=== PATIENT | female | born 1960 | race Caucasian/White ===

== ENCOUNTER 2020-03-31 07:42 | Outpatient (CLI) | payer OTHER, SELFPAY ==
--- NOTE | ~2020-03-31 | MR_ITS ---
EXAMINATION: MR knee RT wo con DATE: 03/31/2020 08:31 INDICATION: Medial right knee pain TECHNIQUE: Magnetic resonance imaging (MRI) of the right knee was performed without intravenous contr ast. Sequences included coronal PD-weighted FSE, coronal PD-weighted FS FSE, sagittal T2-weighted FS E, sagittal PD-weighted FS FSE and axial PD weighted fat saturated FSE. COMPARISON: None. FINDINGS: Medial compartment: Medial extrusion of the medial meniscus with complex tear of the body and posterior horn. The medial meniscal body is small consistent with either displacement or degeneration of the meniscal tissue. Ex tensive cartilage loss with chondral surface irregularity throughout the medial tibial plateau and we ightbearing medial femoral condyle. In places this appears full/near full-thickness with underlying s ubarticular edema and cystic change along the anterior two thirds of the medial tibial plateau as wel l as several smaller foci of subarticular edema along the weightbearing medial femoral condyle. Small marginal osteophytes are present. Lateral compartment: Lateral meniscus is normal. Small region of partial-thickness chondral fissuring involving greater th an 50% the cartilage thickness but without degenerative subarticular changes at the junction of the l ateral tibial plateau and the shoulder of the intercondylar eminence. Tiny marginal osteophytes are p resent. Patellofemoral compartment: Partial-thickness cartilage loss involving up to 50% the cartilage thickness at the patellar apical r idge and medial side of the lateral patellar facet. Additional deeper chondral fissuring at the troch lear groove. Small marginal osteophytes are present. Ligaments and tendons: Anterior and posterior cruciate ligaments are normal. The fibular collateral ligament complex is norm al. Mild thickening and increased signal along the anterior margin of the proximal medial collateral ligament without surrounding edema consistent with likely mild scarring related to chronic sprain. Th e extensor mechanism is normal. The visualized medial and lateral hamstring tendons as well as the il iotibial band are normal. Fluid: Physiologic amount of fluid in the joint space. No loose osteochondral bodies identified. Osseous/other: Site from the degenerative subarticular edema there is normal marrow signal. No fracture or pathologi c marrow replacing process. IMPRESSION: 1. Complex medial meniscal tear. 2. Tricompartmental osteoarthritis, moderate severity with extensive high-grade chondromalacia in the medial compartment and very mild with regions of moderate grade chondromalacia in the patellofemoral and lateral compartments. Reviewed, dictated and finalized at location A. IMPRESSION: 1. Complex medial meniscal tear. 2. Tricompartmental osteoarthritis, moderate severity with extensive high-grade chondromalacia in the medial compartment and very mild with regions of moderat e grade chondromalacia in the patellofemoral and lateral compartments.
== END 2020-03-31 07:43 | disposition home or self-care (01) ==
PROVIDERS: PCP Family Medicine; Visit Provider Orthopaedic Surgery
DX: G89.29 Other chronic pain (principal); M25.561 Pain in right knee; S83.231A Complex tear of medial meniscus, current injury, right knee, initial encounter; M17.11 Unilateral primary osteoarthritis, right knee; M94.261 Chondromalacia, right knee
CPT/HCPCS: 73721

== ENCOUNTER 2021-11-15 07:45 | Outpatient (CLI) | payer OTHER, SELFPAY ==
[2021-11-15 09:37] LABS: Eosinophils Absolute Auto 0.2 K/mm3 (0-0.3); Eosinophils Percent Auto 3.7 % (0-4.4); Hematocrit 41.8 % (37.0-47.0); Hemoglobin 13.9 g/dL (12.0-15.0); Lymphocytes Absolute Auto 2.21 K/mm3 (0.9-3.2); Lymphocytes Percent Auto 54.2 % (18.3-44.2); Mean Corpuscular HGB Conc 33.3 g/dl (32-36); Mean Corpuscular Hemoglobin 28.5 pg (26-34); Mean Corpuscular Volume 85.8 fl (80-100); Mean Platelet Volume 9.8 fl (7.4-10.4); Monocytes Absolute Auto 0.3 K/mm3 (0.1-0.6); Monocytes Percent Auto 6.4 % (2.6-8.5); Neutrophils Absolute Auto 1.4 K/mm3 (1.3-6.7); Neutrophils Percent Auto 34.7 % (45.5-73.1); Platelet Count Result 249 k/mm3 (150-375); Red Blood Count 4.87 M/mm3 (4.2-5.4); Red Cell Distribution Width 13.9 % (11.5-14.5); White Blood Count 4.1 K/mm3 (4.5-10.0)
[2021-11-15 09:51] LABS: Hemoglobin A1C 5.7 % (<5.7)
[2021-11-15 09:53] LABS: Urine Cotinine NEGATIVE
[2021-11-15 09:54] LABS: Albumin Level 4.7 g/dL (3.5-5.1); Estimated Glomerular Filt Rate > 60; Glucose 93 mg/dL (65-110)
== END 2021-11-15 07:46 | disposition home or self-care (01) ==
PROVIDERS: PCP Family Medicine; Visit Provider Orthopaedic Surgery
DX: Z01.818 Encounter for other preprocedural examination (principal); M17.11 Unilateral primary osteoarthritis, right knee
CPT/HCPCS: 80307; 82040; 82565; 82947; 83036; 85025; 87081

== ENCOUNTER 2021-12-03 00:25 | Day surgery (SDC) | payer OTHER, SELFPAY ==
[2021-11-15 08:00] VITALS: BMI 22.4
--- NOTE | 2021-11-15 08:36 | PC.NURSE ---
Addendum entered by Zoë Mixon RN 11/16/21 10:54: PT AWARE LAST DOSE OF ALL VITAMINS AND SUPPLEMENTS WILL BE 11/29/21 Original Note: Report to the Outpatient Waiting Room, entrance under the green pavilion located off [facility], at time ___0600____ on date _12/03/21 . OR Time: __729 . - You and your visitor will be asked a series of questions to screen for COVID 19 for your protection. - A mask is required within the hospital. ONE VISITOR IS ALLOWED Preoperative COVID Testing Requirements: No COVID Test needed if: (proof is required; if not received patient will have Rapid Test prior to entry) - Patient has received COVID Vaccine at least 14 days prior to procedure date or - Patient has positive COVID test result within last 90 days of surgery date. COVID Test needed if above criteria is not met If not COVID vaccinated a COVID test must be conducted within 72 hours of surgery and patient is asked to isolate self from time of testing until procedure. You will go to the [facility] for your COVID testing. The [facility] site is located at the corner of [address] [facility]. You will only be called if COVID results are positive and your surgeon may reschedule your elective surgery date. Patients may have clear liquids (water, carbonated beverages, clear teas, apple juice) until 3 hours prior to surgery with a maximum of 20 ounces. - No food from midnight until time of surgery - Infants may have breast milk until 4 hours before surgery, infant formula 6 hours prior to surgery. - Children will be allowed to drink immediately following surgery. If applicable, please bring a bottle or sippy cup to assist with drinking. Juice, water, soda, and popsicles are readily available. For infants on formula, please bring formula the day of surgery. Pacifiers are allowed. Take the following medications with a SIP of water the morning of surgery: ___INHALER IF NEEDED Medications to discontinue per physician _ALL VITAMINS AND SUPPPLEMENTS 3 DAYS PRE OP Date to take last dose____11/01/21 Please no make-up, nail frisian, hairspray, perfume, deodorant, or body powder the day of surgery. No jewelry (including any body piercings) or valuables the day of surgery, leave them at home. Please take a shower or bath the night before, or the morning of, surgery with an antibacterial soap. Wear comfortable, loose fitting clothing. Children are encouraged to wear pajamas. - Jewelry must be removed prior to entering the operating room. Rings and piercings that are not removed may be cut off. - The hospital will not accept responsibility for valuables. - Please leave all valuables, including medications, at home the day of surgery. If you are going home after surgery, a licensed tram driver must drive you home. - NO public transportation without another adult. - We recommend that an adult stay with you for 24 hours following discharge. - We also recommend that you do not drive, make important decision, drink alcoholic beverages, or take any drugs that were not prescribed by your health care provider for at least 24 hours after your discharge time. For Pediatric surgeries, we recommend two adults accompany the child home (only one inside the building at this time). One visitor will be allowed to accompany the patient into the hospital. Patients visitor will be instructed to remain with patient at all times or leave the building. We will allow the visitor to come back to the postoperative area when patient is ready. Follow any additional instructions given to you from your surgeon. VERBAL instructions given to ___PATIENT and asked if any additional questions and then verbalized understanding. Patient advised to call surgeon office or pre surgery nurse liaison [phone] if any additional questions.
[2021-11-15 08:51] VITALS: BP 106/71; PULSE 60; RESP 18; TEMP 36.7; O2SAT 98
[2021-12-03] VITALS (16 sets, daily range): BP systolic 104–125; BP diastolic 56–93; PULSE 50–77; RESP 12–21; TEMP 36.3–37.2; O2SAT 97–100
--- NOTE | ~2021-12-03 | XR_ITS ---
EXAMINATION: XR knee RT 2V DATE: 12/03/2021 10:24 INDICATION: Right total knee arthroplasty. Postop. TECHNIQUE: 2 views of right knee were obtained. COMPARISON: Right knee radiographs 09/06/2021 FINDINGS: There is a total right knee arthroplasty with patellar resurfacing in near-anatomic alignme nt. No fracture. There is gas in the knee joint and soft tissues, consistent with recent surgery. The re are skin alden posteromedial to tibial metaphysis. IMPRESSION: 1. Total right knee arthroplasty in near-anatomic alignment. Reviewed, dictated and finalized at location A. ET [employer]EARCH LEAD
[2021-12-03] MEDS: ACETAMINOPHEN 500 MG TABLET 1000 MG PO (06:18)
[2021-12-03] MEDS: LACTATED RINGERS 1,000 ML 30 ML IV CONT ×2 (06:35→10:08)
[2021-12-03] MEDS: TRANEXAMIC ACID 1,000MG/ISO100 1,000 MG/100 ML BAG 200 MG IVPB (07:00)
--- NOTE | 2021-12-03 07:09 | WPDHPUPDATE1 ---
History and Physical Update Update Date/Time: 12/03/21 07:09 History and Physical has been reviewed, including an updated exam of the patient. There are NO changes in the patient's condition. Risks, benefits, and alternatives have been discussed and questions answered. Patient agrees to proceed with procedure.
--- NOTE | 2021-12-03 07:11 | WPDANESEPPF ---
Anes - Initial Pre Proc Eval Procedure: Operation Date: 12/03/21 07:30 Proposed Procedures p Right Total Knee Arthroplasty - Quan Jennings MD Date/Time: 12/03/21 07:11 Surgeon: Quan Jennings MD Pre Op Diagnosis: OA right knee Patient Data Age: 61 Gender: F Height: 1.65 m Weight: 61 kg Last Vital Signs Temp 37.2 C 12/03/21 06:09 Pulse 50 L 12/03/21 06:09 Resp 20 12/03/21 06:09 BP 124/67 12/03/21 06:09 Pulse Ox 97 12/03/21 06:09 Allergies Allergy/AdvReac Type Severity Reaction Status Date / Time clindamycin Allergy Severe HIVES Verified 12/03/21 06:20 doxycycline Allergy Severe HIVES Verified 12/03/21 06:20 Home Medications Medication Instructions Recorded Confirmed Type hydroxyzine HCl 25 mg tablet 25 mg PO HS tablet 02/24/20 12/03/21 History trazodone 50 mg tablet 50 mg PO PRN PRN 01/04/21 11/15/21 History albuterol sulfate 2 puff INHALATION PRN PRN 11/15/21 12/03/21 History ascorbic acid (vitamin C) 500 mg PO BID 11/15/21 12/03/21 History ascorbic acid-collagen [Collagen 1 cap PO DAILY 11/15/21 12/03/21 History Plus Vitamin C] zzzebjr-M5-zrod-copper-gabriela 1 tablet PO BID 11/15/21 12/03/21 History [Citracal-D3 Maximum Plus] psyllium [Metamucil] 1 packet PO DAILY 11/15/21 12/03/21 History escitalopram oxalate 5 mg tablet 5 mg PO DAILY 11/20/21 12/03/21 History rivaroxaban 10 mg tablet 10 mg PO DAILY #14 tablet 11/20/21 12/03/21 Rx Patient hx anesthesia problems: none Family hx anesthesia problems: none Results Review: All pre-operative results and documents have been reviewed as part of the pre-operative evaluation. [facility] Past Medical History Medical History BMI 22.0-22.9, adult Osteoarthritis of right knee Surgical History Surgical History History of arthroscopy of right knee History of repair of right rotator cuff History of vein stripping right leg Family History Family History Mother Heart disease Father Hypertension Heart disease Cancer Sibling Diabetes mellitus Hypertension Social History Social History Smoking packs per day: 0.5 Smoking cigarettes per day: 10.0 Years smoked: 10 Smoking pack-years: 5.00 Smoking status: Former smoker Tobacco type: cigarettes Smoking end date: 09/29/79 Additional smoking assessment comments: DENIES ANY FORM OF TOBACCO USE Alcohol intake: current Drinks per week: 14 Living arrangements: with family Additional living arrangements comments: 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 Informed Consent: The patient's anesthetic plan and its attendant risks and benefits were discussed with the patient/family/POA. Questions were solicited and answers provided to the satisfaction of the patient/family/POA.
--- NOTE | 2021-12-03 07:14 | WPDANESPNB ---
Anes - Peripheral Nerve Block Date/Time: 12/03/21 07:14 I have discussed with the patient/family/POA the placement of a peripheral nerve block for post-operative pain management, including associated risks, benefits, complications, and side effects. Alternative methods of post-operative analgesia were detailed. Questions were solicited and answers provided to the satisfaction of the patient/family/POA. Time-Out: A pre-procedural Time-Out was completed immediately before starting the procedure and confirmed: Patient Identification, Site, Procedure, Patient Position and the Availability of Requisite Equipment. Clinical Indications: Acute post-operative pain management requested by the operative surgeon. Nerve Block Insertion Note Anes-nerve block: adductor canal right Patient position: supine Skin prep: chlorhexidine Needle: 22 gauge, stimulating, insulated echogenic needle. Needle length: 80 mm Technique: ultrasound Technique comment: in plane Injectate: bupivacaine 0.25% with epi 5 mcg/ml (30cc) Observations: tolerated well Complications: none Procedure start time:: 725 Procedure end time:: 730
[2021-12-03] MEDS: ceFAZolin 2 GM/D5W 50 ML 2 GM/50 ML BAG IVPB (07:36)
[2021-12-03] MEDS: GENTAMICIN BONE CEMENT REFOBACIN 1 EACH TOPICAL (08:11)
[2021-12-03] MEDS: ceFAZolin SODIUM 1 GM VIAL IV PUSH (09:12)
--- NOTE | 2021-12-03 10:19 | P.OP_ITS ---
Procedure Note - Detailed Date of Procedure 12/03/21 Pre-op Diagnosis OA right knee Post-op Diagnosis Same Procedure Performed Right total knee replacement Surgeon Quan Jennings MD [employer] [facility] Anesthesia General and Regional Description of Procedure The patient was identified and proper site identified. In the preop holding area the anesthesia team performed a right sub sartorial block after which the patient was taken to the operating room and transferred to the OR table positioning supine taking care to pad the torso and extremities. After general anesthetic induction and intubation a nonsterile tourniquet was placed high on the right thigh. The right lower extremity was prepped and draped in the usual sterile fashion. The extremity was exsanguinated and with the knee flexed tourniquet was inflated to 300 mmHg remaining up for approximately 70 minutes. An anterior midline incision was made and a mid vastus approach was used. Infra and suprapatellar fat pads were excised. Patella was resected leaving 15 mm thickness and prepared for the size 28 round three peg component. Using the intramedullary guide the distal femur was cut in the proper orientation for the size size 65 femoral component. Using the extramedullary guide the tibia was c ut perpendicular to the long axis protecting collateral ligaments and popliteal structures. It was sized to a 71. Flexion and extension gaps were balanced. Trial reduction was undertaken and the weight-bearing line was noted to passed through the center of the joint. The medial tibial plateau cyst was thoroughly curetted and then grafted with some of the bone from the tibial plateau which had been removed. Proximal tibia was drilled and punched in the proper orientation for the real component. Trial components were removed. The bone surfaces were washed with pulsatile lavage and dried. The real components were cemented simultaneously. The knee was held in extension and the patella held clamped until the cement had cured. Excess cement was removed from the joint. After trialing it was determined that the Ten mm insert gave full range of motion from October 30, 2019 degrees of flexion and the patella tracked in the femoral groove with no lift-off. After final lavage the joint the real 10 E poly insert was placed and secured with a locking bar. A Betadine and saline wash was placed into the wound and allowed to sit for approximately 3 minutes and then evacuated. Periarticular tissues were infiltrated with 60 cc of the arthroplasty solution. 1 g of tranexamic acid was left in the wound. The extensor mechanism was repaired with #2 Vicryl suture and 0 looped PDS suture. Subcu was reapproximated with three 0 Monocryl, two 0 Quill and tissue adhesive for the skin. A sterile dressing was applied. she tolerated the procedure well, was awakened and extubated, transferred to the bed and was taken to recovery area in stable condition. There were no known intraoperative complications. Perioperative antibiotics were administered. Estimated Blood Loss 100 Tourniquet Time 70 Drains No Packing No Pathology None sent Complications No immediate complications Condition Stable Disposition PACU
[2021-12-03] MEDS: fentaNYL CITRATE INJ (*CRX) 100 MCG/2 ML VIAL 25 MCG IV PUSH ×8 (10:25→11:12)
[2021-12-03] MEDS: diphenhydrAMINE HCl INJ 50 MG/ML VIAL 25 MG IV PUSH (10:47)
[2021-12-03] MEDS: SODIUM CHLORIDE 0.9% IV 1,000 ML 125 ML IV CONT (12:00)
[2021-12-03] MEDS: oxyCODONE/ACETAMINOPHEN (*CRX) 5-325 MG TABLET 1 TABLET PO ×2 (12:04→17:27)
[2021-12-03] MEDS: KETOROLAC 15 MG/ML VIAL (*BKC) IV PUSH ×2 (12:44→17:28)
[2021-12-03] MEDS: ASCORBIC ACID 500 MG TABLET PO (16:23)
[2021-12-03] MEDS: SENNA/DOCUSATE SODIUM TABLET 2 TAB PO (16:23)
[2021-12-04] MEDS: KETOROLAC 15 MG/ML VIAL (*BKC) IV PUSH ×3 (00:31→12:15)
[2021-12-04] MEDS: oxyCODONE/ACETAMINOPHEN (*CRX) 5-325 MG TABLET 1 TABLET PO ×3 (00:32→12:15)
[2021-12-04 01:35] VITALS: BP 114/63; PULSE 56; RESP 20; TEMP 36.3; O2SAT 99
[2021-12-04 05:10] VITALS: BP 128/62; PULSE 66; RESP 20; TEMP 36.7; O2SAT 99
--- NOTE | 2021-12-04 07:31 | PM.DS ---
DS: Admitting Diagnosis Discharge Date December 04 2021 Admitting Diagnosis Right knee osteoarthritis DS: Discharge Diagnosis Discharge Diagnosis (1) History of total right knee replacement: Code(s): Z96.651 - Presence of right artificial knee joint Status: Acute Assessment and Plan: 61-year-old female postop day 1 after right total knee replacement per Dr. Jennings. Overall doing well and is going to continue with therapy today. Medications and postop instructions discussed in detail with patient today. Plan to follow up in our office 2 weeks for wound check. She was informed to call our office with any further questions or concerns prior to that appointment. DS: Summary Hospital Course Reason for hospitalization: Observation after outpatient procedure Hospital Course: 61-year-old female postop day 1 after right total knee replacement by Dr. Jennings. Unremarkable overnight stay. Surgical incision is clean and dry. She will continue to see therapy today prior to discharge. Discharge instructions reviewed with patient in detail. Status at Discharge Functional status at discharge: uses cane/walker Overall status at discharge: patient is progressing back to baseline Time Spent with Patient Time attestation: Total time spent providing and/or coordinating discharge services: Time spent: Less than 30 minutes Exam Const: General: comfortable and no acute distress Eyes: General: appearance normal, both eyes and all related structures Resp: Effort & Inspection: normal respiratory effort GI: Inspection: non-distended GI Palp: No Tenderness to palpation present (GI) Neuro: Sensory Exam: normal sensation Extrem: Other: Exam of the right knee shows moderate swelling consistent with recent surgical procedure. The surgical dressing is clean and dry. She is able to fully extend the knee to 0? with active assisted range of motion. She is able to dorsiflex and plantar flex the foot without issue. Neurovascular status unremarkable. Calves negative. Psych: Mental Status: mental status grossly normal DS: Data Data Completed and Pending Labs on day of discharge: Labs from last 24 hours 12/03/21 06:41 Blood Type A Negative Antibody Screen Negative Discharge Plan Discharge Patient Disposition: Home, Self-Care Discharge Instructions: 3 times daily for 20 minutes each time, reclining in bed with ice packs over the incision and a pillow underneath the calf of the affected leg, not under the knee. Your wound is glued so it is okay to get into the shower and get the wound wet in two days. Be sure to read through all the information that came from a my office and the hospital. Most of the answers you will need can be found that material. Call the office with any questions that you cannot find answers to, or concerns you may have. After the Xarelto is completed, start taking one coated 325 mg aspirin daily and do this for four more weeks. Please call [facility] at as soon as possible to arrange for/verify your follow-up appointment to be seen in 2 weeks. Also, call the office with any orthopedic/surgical related questions prior to follow-up. Be sure to get up and move around several times daily but do not overdo it. Take the arthritis formula Tylenol 650 mg tablet on an 8 hour schedule. A good 8 hour schedule is: 6:00 a.m., 2:00 p.m., 10:00 p.m. you may take the prescribed pain medication along with the Tylenol; it is not to be taken instead of the Tylenol. I would like for you to take the Tylenol on a schedule for 2-3 weeks. He had been given a prescription for oxycodone. I suggest you take this medication as prescribed for the 1st 2-3 days but then you can take it on a as needed schedule. You have also been given a prescription for Celebrex to be taken twice daily for 1 week. Use the laxative Senekot S twice daily for 2 weeks after discharge while taking the prescription pain medicatio
[2021-12-04] MEDS: PSYLLIUM POWDER PACKET 1 PACKET PO (08:00)
[2021-12-04] MEDS: ESCITALOPRAM OXALATE 5 MG TABLET PO (08:00)
[2021-12-04] MEDS: SENNA/DOCUSATE SODIUM TABLET 2 TAB PO (08:00)
[2021-12-04] MEDS: RIVAROXABAN 10 MG TABLET PO (08:00)
[2021-12-04] MEDS: polyethylene glycoL 3350 17 GM POWD.PACK PO (08:00)
[2021-12-04] MEDS: ASCORBIC ACID 500 MG TABLET PO (08:00)
[2021-12-04 09:52] VITALS: BP 116/62; PULSE 62; RESP 16; TEMP 36.4; O2SAT 100
== END 2021-12-04 13:00 | disposition home or self-care (01) ==
LOC: ANHSURGERY 10:10 → ANH2MED 11:25
PROVIDERS: PCP Family Medicine; Visit Provider Orthopaedic Surgery
PROC: (CPT 27447; principal; 2021-12-03 07:30)
DX: M17.11 Unilateral primary osteoarthritis, right knee (principal); G89.18 Other acute postprocedural pain; Z79.01 Long term (current) use of anticoagulants; Z79.51 Long term (current) use of inhaled steroids; Z87.891 Personal history of nicotine dependence
CPT/HCPCS: 27447; 64447; 36415; 73560; 80307; 82040; 82565; 82947; 83036; 85025; 86850; 86900; 86901; 87081; 97110; 97116; 97161; 97165; 97535; A9270; C1713; C1776; J0171; J0690; J1100; J1170; J1200; J1885; J2250; J2270; J2405; J2704; J2795; J3010; J7030; J7120

== ENCOUNTER 2022-01-29 07:00 | Outpatient (RCR) | payer OTHER, SELFPAY ==
--- NOTE | 2021-12-10 10:23 | PTOPEVAL ---
Thank you for referring Augustina Hoffman to [facility].? The patient is scheduled to be seen for therapy? 2 x/week for 8 weeks. Please review, sign, date and return this plan of care MARTHA. I agree with and certify that the following plan of care is medically necessary. 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 She is taking pain medication. Subjective Information She had knee surgery 12/03/21. 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 She has stiffness with prolonged sitting or sleeping. c/o swelling in the leg and edema above surgery site. She is performing HEP daily. She is having trouble sleeping. Pain Assessment Timing of Pain Assessment Timing of Pain Assessment Assessment Pain Scale Pain Scale Used Numeric (1 - 10) Self Report Pain Assessment Right Knee(s) Reported Pain Level 4 Pain Description Aching,Soreness,Tightness Pain Frequency Acute,Continuous Lowest Pain Intensity 2 Greatest Pain Intensity 10 Pain Aggravating Factors ADL's,Bending,Exercise/ Activity,Palpation,Sitting, Stair Climbing,Walking Pain Behaviors Anxious Pain Score Pain Score 4: Self Report Interventions Used Interventions Used By Clinicians Education,Exercise Pain Relief Interventions Used By Exercise,Ice,Medication Patient Lower Extremity Range of Motion Knee Range of Motion Right Knee Flexion Range of Motion - Active 80 Knee Extension Range of Motion - Active -5 Knee Range of Motion Limitations Edema,Pain,Soft Tissue Restriction Lower Extremity Muscle Strength Testing Hip Strength Right Hip Flexion Strength 3+ Fair + Hip Extension Strength 3 Fair Hip Abduction Strength 3+ Fair + Hip Strength Comments pain with testing Knee Strength Right Knee Flexion Strength 3 Fair Knee Extension Strength 3 Fair Knee Strength Comments pain with testing Posture Posture Standing Position Head/C-Spine Posture Forward Head Weight Distribution Weight Shifted Left,Decreased
--- NOTE | 2022-01-14 12:37 | PTOPEVAL ---
Thank you for referring Augustina Hoffman to [facility]. Augustina has attended 11 therapy visits to address her LE impairments since her knee surgery. She is progressing with knee motion, LE strength and functional mobility. Extensive education to avoid over use of LE with daily task. She is progressing towards her therapy goals. The patient is scheduled to be seen for therapy? 2 x/week for 4 weeks. Please review, sign, date and return this plan of care MARTHA. I agree with and certify that the following plan of care is medically necessary. Referring Physician Date Attending Provider: Quan Jennings MD Diagnosis OA right knee, s/p TKR Onset 12/03/21 Subjective Information She had knee surgery 12/03/21. Query Text:As Reported By Patient/ She reports increased knee Family pain at the end of day. She has increased stiffness with prolonged walking. However she is pulling her horse when she is walking. She reports improved standing task. She reports tenderness on the inside of knee/proximal lower leg region. She was performing 2x/ the exercises, reps and hold time for all her exercises. She is not icing, because it is painful, thus she is not icing. She is concerned with her limited knee motion and cont swelling. Pain Assessment Right Knee(s) Reported Pain Level 1 Pain Score Pain Score 1: Self Report Lower Extremity Range of Motion Right Knee Flexion Range of Motion - Active 120 Knee Extension Range of Motion - Active -10 Lower Extremity Muscle Strength Testing Right Hip Flexion Strength 4+ Good + Hip Extension Strength 3+ Fair + Hip Abduction Strength 3+ Fair + Hip Strength Comments pain with testing glut region Right Knee Flexion Strength 4- Good - Knee Extension Strength 4+ Good + Knee Strength Comments pain with testing hamstring Palpation Assessment Palpation severe tenderness right pes ansurens, scar restriction inf healed incision, decreased patellar mobilization Extremity Circumference Assessment Circumference Assessment Location Right Body Part Knee Site Descriptor ([place]) inf patella Circumference (cm) 35 Noninvolved Side Circumference (cm) 3
--- NOTE | 2022-01-31 07:16 | PCPTNOTE ---
Pt had a f/u with who recommended DC from therapy services and continue with her HEP. Will DC her chart at this time.
--- NOTE | 2022-01-31 07:18 | PCPTNOTE ---
Admitting Provider: Attending Provider: Quan Jennings MD Patient:Augustina Hoffman Date of :1960 Physical Therapy Discharge Note Patient has been for 15 therapy visits from 12/10/21 to 01/29/22 to address impairments related to TKR. As a result of skilled therapy services she demonstrates improved knee motion, LE strength and ability to perform daily task. The goals have been partially met. Thank you for referring this patient to [facility]. Please review, sign, date and return this discharge summary MARTHA. I have been updated about the patient's current status and I agree with discharge from the above service at this time. Referring Physician Date
== END 2022-01-31 09:27 | disposition home or self-care (01) ==
LOC: ANHPT 07:00
PROVIDERS: PCP Family Medicine; Visit Provider Orthopaedic Surgery
DX: Z47.1 Aftercare following joint replacement surgery (principal); Z96.651 Presence of right artificial knee joint
CPT/HCPCS: 97014; 97110; 97112; 97140; 97162; 97530; G0283

== ENCOUNTER 2023-08-05 00:40 | Day surgery (SDC) | payer MEDICARE, SELFPAY ==
--- NOTE | 2023-07-29 10:19 | PC.NURSE ---
Report to the Outpatient Waiting Room, entrance under the green pavilion located off [facility], at time _0600 on date 08/05/23 . Planned Procedure Time: __0730 . Time changes happen often and if your time is changed the preop area will call you the afternoon before. - You and your visitor will be asked to self-screen and do not enter if you have any COVID symptoms. - A mask is optional within the hospital at this time. Patients may have clear liquids (water, carbonated beverages, clear teas, apple juice) until 3 hours prior to surgery with a maximum of 20 ounces. - No food from midnight until time of surgery - Infants may have breast milk until 4 hours before surgery, infant formula 6 hours prior to surgery. - Children will be allowed to drink immediately following surgery. If applicable, please bring a bottle or sippy cup to assist with drinking. Juice, water, soda, and popsicles are readily available. For infants on formula, please bring formula the day of surgery. Pacifiers are allowed. Take the following medications with a SIP of water the morning of surgery: _NONE DO NOT STOP ANY OF YOUR OTHER PRESCRIPTION MEDICATIONS PRIOR TO SURGERY ?EXCEPT THE FOLLOWING Medications to discontinue per physician ___ALL VIT/SUPPLEMENT 3 DAYS PRE OP.LAST DOSE 08/01/23 Please no make-up, nail puerto rican, hairspray, perfume, deodorant, or body powder the day of surgery. No jewelry (including any body piercings) or valuables the day of surgery, leave them at home. Please take a shower or bath the night before, or the morning of, surgery with an antibacterial soap. Wear comfortable, loose fitting clothing. Children are encouraged to wear pajamas. - Jewelry must be removed prior to entering the operating room. Rings and piercings that are not removed may be cut off. - The hospital will not accept responsibility for valuables. - Please leave all valuables, including medications, at home the day of surgery. If you are going home after surgery, a licensed route delivery service driver must drive you home. - NO public transportation without another adult if you receive anesthesia. - We recommend that an adult stay with you for 24 hours following discharge. - We also recommend that you do not drive, make important decision, drink alcoholic beverages, or take any drugs that were not prescribed by your health care provider for at least 24 hours after your discharge time. For Pediatric surgeries, we recommend two adults accompany the child home. Follow any additional instructions given to you from your surgeon. If you or anyone in your household have experienced Covid symptoms in the past week, please notify your surgeon or the nurse liaison at the phone number below for possible testing. Telephone instructions given to __PATIENT and asked if any additional questions and then verbalized understanding. Patient advised to call surgeon office or pre surgery nurse liaison [phone] if any additional questions.
[2023-07-29 11:27] VITALS: BMI 23.1
[2023-08-05] VITALS (8 sets, daily range): BP systolic 105–129; BP diastolic 59–83; PULSE 47–63; RESP 12–16; TEMP 36.6–36.7; O2SAT 99–100
[2023-08-05] MEDS: KETOROLAC 15 MG/ML VIAL (*BKC) IV PUSH (06:30)
[2023-08-05] MEDS: ACETAMINOPHEN 500 MG TABLET 1000 MG PO (06:30)
[2023-08-05] MEDS: LACTATED RINGERS 1,000 ML 30 ML IV CONT ×2 (06:30→08:21)
--- NOTE | 2023-08-05 07:08 | WPDHPUPDATE1 ---
History and Physical Update Update Date/Time: 08/05/23 07:08 History and Physical has been reviewed, including an updated exam of the patient. There are NO changes in the patient's condition. Risks, benefits, and alternatives have been discussed and questions answered. Patient agrees to proceed with procedure.
[2023-08-05] MEDS: ceFAZolin 2 GM/D5W 50 ML 2 GM/50 ML BAG IVPB (07:27)
[2023-08-05] MEDS: LIDOCAINE HCL 1% LOCAL INJ 10 ML VIAL INFILTRATE (07:41)
[2023-08-05] MEDS: ceFAZolin SODIUM 1 GM VIAL IV PUSH (08:10)
--- NOTE | 2023-08-05 08:31 | P.OP_ITS ---
Procedure Note - Detailed Date of Procedure 08/05/23 Pre-op Diagnosis right anterior knee pain s/p total knee Post-op Diagnosis Same Procedure Performed Right knee arthroscopy with peripatellar debridement. Surgeon Quan Jennings MD Anesthesia General Description of Procedure The patient was identified and proper site identified and She was taken to the operating room, transferred to the OR table placing her supine taking care to pad the torso and extremities. After general anesthetic induction and i ntubation, a nonsterile tourniquet was placed high on the right thigh. The right lower extremity was positioned, prepped and draped in usual sterile fashion. 10 cc of 1% lidocaine was injected into the subcutaneous tissue in the area of the portals at start of the procedure, and an additional 10 at the end. The portals were established and the arthroscopy was carried out. the Inferolateral and superomedial inflow and outflow portals were placed. To help with visualization the tourniquet was inflated to 300 millimeters of mercury and remained up for about 21 minutes. Inferomedial working portal was created. There is abundant scar tissue surrounding the periphery of the patella with some focal areas of inflammation. Some of this was redundant and was able to be impinged between the patella and the femoral trochlea of the total knee component. This scar tissue was debrided with a combination of shaver and ArthroCare Wand. . The Wand was also used for hemostasis. The gutters, the pouch in the anterior compartment were inspected and noted to be essentially clear. There was some low-level inflammation noted throughout the knee joint. No evidence of chronic synovitis. The knee was flushed with a copious amount of arthroscopic fluid and equipment was removed. The tourniquet was released. Portals were closed with three O nylon suture and a sterile dressing was applied. She tolerated the procedure well, was awakened, extubated and taken to recovery area in stable condition. There were no known intraoperative complications. Estimated blood loss was negligible; she received perioperative antibiotics. Estimated Blood Loss 15 Drains No Packing No Pathology None sent Complications No immediate complications Condition Stable Disposition PACU [facility] Billing Surgery - Charge Forward: Surgery Billing ([id number])
[2023-08-05] MEDS: oxyCODONE HCL (*CRX) 5 MG TAB IR PO (10:17)
== END 2023-08-05 10:23 | disposition home or self-care (01) ==
PROVIDERS: PCP Family Medicine; Visit Provider Orthopaedic Surgery
PROC: (CPT 29870; principal; 2023-08-05 07:30)
DX: M25.561 Pain in right knee (principal); M25.861 Other specified joint disorders, right knee; Z96.651 Presence of right artificial knee joint; Z87.891 Personal history of nicotine dependence; Z79.51 Long term (current) use of inhaled steroids
CPT/HCPCS: 29877; A9270; J0690; J1100; J1885; J2250; J2405; J2704; J3010; J7120

== ENCOUNTER 2023-08-14 10:30 | Outpatient (RCR) | payer MEDICARE, SELFPAY ==
--- NOTE | 2023-08-07 08:48 | PTOPEVAL1 ---
Assessment and note entered by Damien Salas, PT Evaluation Information Assessment Status Evaluation Diagnosis Post knee scope, History of R TKA, Knee pain and weakness Onset 08/05/23 Subjective Information Reports that she was having tightness and jarring in the knee. Underwent scope to remove scar tissue and improve mobility. She denies that she is having any pain at this time. Feels she is guarding it a little but but doing well overall. No trouble sleeping at this time. She likes to ride horses and wants to get back to it. Reported Pain Level Pain Score 0: Self Report Assessment PT Clinical Summary Patient presents with signs and symptoms consistent with post operative knee scope. Currently demonstrating edema, mild weakness, and mild loss of range of motion. Will benefit from skilled therapy to address these deficits to maximize functional return for ADL ability pain free . Plan of Care Interventions Electrical Stimulation,Gait Training,Hot Pack/Cold Pack,Intermittent Compression,Manual Therapy, Neuro Re-education,Therapeutic Activities, Therapeutic Exercise PT Services Indicated Yes Treatment Frequency and 2x/week for 4 weeks Duration These treatments will address the objective and functional deficits as defined above. The patient will be advanced safely and appropriately in order for the patient to progress towards his/her prior level of function. Additional exercises will be introduced and as well as a comprehensive home exercise program upon discharge, if needed, ?to ensure carryover of functional gains achieved in the clinic. This treatment plan has been reviewed and agreement upon by the patient.
--- NOTE | 2023-08-19 11:10 | PCPTNOTE ---
Pt cancelled today and all remaining visits after being released from Dr. Jennings.
== END 2023-10-27 09:23 | disposition home or self-care (01) ==
LOC: ANHPT 10:30
PROVIDERS: PCP Family Medicine; Visit Provider Orthopaedic Surgery
DX: Z48.89 Encounter for other specified surgical aftercare (principal); Z98.890 Other specified postprocedural states
CPT/HCPCS: 97110; 97112; 97161; 97530

== ENCOUNTER 2023-09-13 11:02 | Emergency (ER) | payer MEDICARE, SELFPAY ==
--- NOTE | ~2023-09-13 | CT_ITS ---
EXAMINATION: CT abdomen pelvis w con DATE: 09/13/2023 12:39 INDICATION: Abdominal pain with constipation TECHNIQUE: Computed tomography (CT) of the abdomen and pelvis was performed with 100 cc Omnipaque 350 intravenous contrast. The dose-length product was 262.39 mGy-cm. Automated exposure control and iter ative reconstruction technique were employed. COMPARISON: None. FINDINGS: Lung bases are unremarkable. Heart size normal. No significant pleural or pericardial effus ion. No significant vascular abnormality. No lymphadenopathy. There is abnormal thickening of the sig moid colon with surrounding inflammation, consistent with colitis. Fatty infiltration of the liver. Small subcentimeter hypodensities of the right hepatic lobe, most li eveline benign cysts or hemangiomas. The spleen, pancreas, adrenal glands and kidneys are unremarkable. No free air or free fluid. IMPRESSION: 1. Moderate thickening of the sigmoid colon with surrounding inflammation, consistent with colitis, m ost likely infectious or inflammatory. No evidence for perforation or abscess. Cannot exclude underly ing mass. Recommend follow-up clinical evaluation of the colon when the patient's condition permits. Reviewed, dictated and finalized at location A. ERCIAL LOAN PROCESSOR IMPRESSION: 1. Moderate thickening of the sigmoid colon with surrounding inflammation, cons istent with colitis, most likely infectious or inflammatory. No evidence for pe rforation or abscess. Cannot exclude underlying mass. Recommend follow-up clini hang evaluation of the colon when the patient's condition permits.
[2023-09-13 11:09] VITALS: BP 129/80; PULSE 92; RESP 20; TEMP 36.7; O2SAT 100
[2023-09-13 11:33] VITALS: BP 129/74; PULSE 78; RESP 18; TEMP 36.6; O2SAT 100
[2023-09-13 12:04] LABS: Basophils Absolute Auto 0.1 K/mm3 (0.0-0.1); Basophils Percent Auto 0.5 % (0.2-1.2); Eosinophils Percent Auto 0.3 % (0-4.4); Hematocrit 41.5 % (37.0-47.0); Hemoglobin 13.5 g/dL (12.0-15.0); Immature Granulocyte Absolute 0.05 K/mm3 (0.00-0.031); Immature Granulocyte Percent A 0.5 % (0-0.5); Lymphocytes Absolute Auto 1.38 K/mm3 (0.9-3.2); Lymphocytes Percent Auto 12.6 % (18.3-44.2); Mean Corpuscular HGB Conc 32.5 g/dl (32-36); Mean Corpuscular Hemoglobin 28.5 pg (26-34); Mean Corpuscular Volume 87.6 fl (80-100); Monocytes Absolute Auto 0.5 K/mm3 (0.1-0.6); Monocytes Percent Auto 4.9 % (2.6-8.5); Neutrophils Absolute Auto 8.9 K/mm3 (1.3-6.7); Neutrophils Percent Auto 81.2 % (45.5-73.1); Platelet Count Result 253 k/mm3 (150-375); Red Blood Count 4.74 M/mm3 (4.2-5.4)
[2023-09-13 12:08] LABS: Appearance Urine Clear (Clear); Bacteria Urine None Seen /hpf; Bilirubin Urine Negative (Negative); Blood Urine 1+ (Negative); Color Urine Yellow (Yellow); Glucose Urine UA Negative (Negative); Ketones Urine 2+ mg/dL (Negative); Leukocyte Esterase Ur Negative LEU/UL (Negative); Nitrate Urine Negative (Negative); Non Pathogenic Casts 0-2; Protein Urine Negative (Negative); Specific Grav Ur 1.012 (1.001-1.035); Squamous Epithelial Cell Urine None seen /hpf (Few); Urobilinogen Urine 0.2 mg/dL (<2.0); WBC Urine 0-5 /hpf; pH Urine 6.5 (5.0-9.0)
[2023-09-13 12:09] LABS: Add Urine Microscopic? YES
[2023-09-13 12:13] LABS: Alanine Aminotransferase 23 U/L (6-35); Albumin Level 4.6 g/dL (3.5-5.1); Alkaline Phosphatase 92 U/L (38-126); Anion Gap 9 mmol/L (8-16); Aspartate Amino Transferase 43 U/L (14-36); Bilirubin,Total 1.3 mg/dL (0.2-1.3); Blood Urea Nitrogen 11 mg/dL (7-17); Calcium 9.8 mg/dL (8.4-10.2); Carbon Dioxide 25 mmol/L (22-30); Chloride 96 mmol/L (98-107); Estimated CRCL calculation 55 ml/min; Estimated Glomerular Filt Rate > 60; Glucose 105 mg/dL (65-110); Lipase 55 U/L (23-300); Potassium 3.9 mmol/L (3.4-5.0); Sodium 130 mmol/L (137-145)
--- NOTE | 2023-09-13 12:14 | ED.ABDPAIN ---
HPI - Abdominal Pain General Chief Complaint: Abdominal Pain Stated Complaint: abdominal cramping Time Seen by Provider: 09/13/23 12:10 Source: patient and family Mode of arrival: ambulatory Limitations: no limitations History of Present Illness HPI narrative: 63 years old white female presents with feeling cramps all over her belly mainly on the left lower quadrant, been using [id number] stool softener including Metamucil, enema, Colace, laxative suppository without any improvement. She denies any fever, chills, nausea, vomiting. Patient is telling me that she have history of irritable bowel which causing constipation, alternating with diarrhea. 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 Related Data Home Medications Medication Instructions Recorded Confirmed albuterol sulfate 90 mcg/actuation 2 puff inhalation PRN PRN SOB 11/15/21 08/19/23 aerosol inhaler calcium carbonate 600 mg-vitamin 1 tablet PO DAILY 07/29/23 08/19/23 D3 20 mcg (800 unit) tablet (Caltrate with Vitamin D3) melatonin 5 mg tablet 5 mg PO HS PRN Insomnia 07/29/23 08/19/23 Allergies Allergy/AdvReac Type Severity Reaction Status Date / Time clindamycin Allergy Severe HIVES Verified 09/13/23 11:34 doxycycline Allergy Severe HIVES Verified 09/13/23 11:34 Review of Systems Review of Systems: All systems reviewed & are unremarkable except as noted in HPI and below PMFSH Past Medical History Medical History Arthritis of left knee BMI 22.0-22.9, adult Osteoarthritis of right knee Surgical History Surgical History History of arthroscopy of right knee History of repair of right rotator cuff History of total right knee 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/03/2021 History of vein stripping right leg Right anterior knee pain Right knee arthroscopy with wendy-patellar debridement August 05, 2023 Family History Family History Mother Heart disease Father Hypertension Heart disease Cancer Sibling Diabetes mellitus Hypertension Social History Social History Smoking packs per day: 0.5 Smoking cigarettes per day: 10.0 Years smoked: 10 Smoking pack-years: 5.00 Smoking status: Former smoker Tobacco type: cigarettes Smoking end date: 09/29/79 Additional smoking assessment comments: DENIES ANY FORM OF TOBACCO USE Alcohol intake: current Drinks per week: 10 Substance use: never Substance use type: does not use Lack of Transportation: No Lack of Food: Never True Current Housing: I Have Housing Concerned About Future Housing: No Difficulty Paying Gas/Electric Bills: No Difficulty Paying for Meds: No Currently Unemployed: No Education: High School Diploma/GED Difficulty w/ Childcare or Family Care: No Living arrangements: with family Additional living arrangements comments: Occupation/Education: retired Additional occupation/education comments: 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 no organomegaly, quiet bowel sounds Vascular: Normal peripheral pulses, normal capillary refill. 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
--- NOTE | 2023-09-13 12:27 | PC.NURSE ---
PT to cat scan
[2023-09-13] MEDS: SODIUM CHLORIDE 0.9% IV 1,000 ML 999 ML IV CONT (12:49)
[2023-09-13 12:50] VITALS: BP 118/69; PULSE 73; RESP 18; O2SAT 98
[2023-09-13 13:45] VITALS: BP 120/70; PULSE 70; RESP 18; O2SAT 98
== END 2023-09-13 13:46 | disposition home or self-care (01) ==
PROVIDERS: Emergency Medicine; Emergency Provider Emergency Medicine; PCP Family Medicine
DX: K52.9 Noninfective gastroenteritis and colitis, unspecified (principal); M17.0 Bilateral primary osteoarthritis of knee; Z96.651 Presence of right artificial knee joint; Z87.891 Personal history of nicotine dependence
CPT/HCPCS: 36415; 74177; 80053; 81001; 83690; 85025; 96360; 99284; J7030; Q9967

== ENCOUNTER 2025-08-04 08:10 | Emergency (ER) | payer MEDICARE, SELFPAY ==
--- OUTSIDE RECORDS SUMMARY | 2010-01-06 03:30 | XMS_ITS | Continuity of Care Document ---
Author Organization [facility] [place] Address [address] [place] [address] Phone Care Team Providers Care Fagoter Name Role Phone Grant OD, Alexandr Unavailable Unavailable Procedures Procedure Date Eye Exam & Treatment Refraction Eye Exam & Treatment Eye Exam & Treatment Refraction Miscellaneous Vision Service - Supplies Tax - Medical Eye Exam & Treatment Refraction Advance Directives Directive Yes / No Effective Date File Name No Information Encounters Encounter Description Practice Location Reason(s) For Visit Diagnoses Date Provider Providers Copied on Encounter [facility], [address] [place] [address] [address], [place], [place], [id number], tel:[phone] [facility] No Information 0-201 0 Grant OD Alexandr. [address] , [address], [place], [address], [place]. tel:[phone] [facility], [address], [place], [place], [id number], [place] tel:[phone] [facility] No Information 4-200 9 Grant OD Alexandr. [address] , [address], [place], [address], [place]. tel:[phone] [facility], [address], [place], [place], [address], [place] tel:[phone] [facility] No Information Mar-0 6-200 8 Grant OD Alexandr. [address] [facility] , [address], [place], [place], [facility], . tel:[phone] [facility], [address], [place], [place], [address], [place] tel:[phone] [facility] No Information b-2 6-200 7 [facility] . [address] [facility], [address], [place], [place], [address], [place]. tel:[phone] Referring Provider: Alexandr Grant OD A, [address] [facility] [address], [place], [place], [facility]. tel:[phone] sulting Provider: Monik Wong, [address] [place] [address], [facility]. tel:[phone] [facility], [address], [place], [place], [address], [place] tel:[phone] [facility] No Information b-2 4-200 7 Grant OD Alexandr. [address] [facility] , [address], [place], [place], [facility], . tel:[phone] Family History Family Member Type Diagnosis Age At Onset No Information Payers Payer name Insurance type Covered republican ID Authoriza tion(s) No Information Social History Type Description Quantity Date Captured Comments Sex Female Smoking Status No Information Chief Complaint And Reason For Visit No Information Reason For Referral Reason For Referral No Information History Of Present Illness Encounter Date Complaint History Of Prese nt Illness No Information Functional Status Date Functional Assessmen t No Information Instructions Date Instruction Additional Infor mation No Information Assessments Type Assessment Date No Information Patient Care Teams Name Effective Dates (start - stop) Status Members No Information
--- OUTSIDE RECORDS SUMMARY | 2010-01-06 03:30 | XMS_ITS | Continuity of Care Document ---
Author Organization [facility] [place] Address [address] [place] [address] Phone Care Team Providers Care Interior Plant Caretaker Name Role Phone Grant OD, Alexandr Unavailable [...] Diagnoses Date Provider Providers Copied on Encounter [facility], [address] [place] [address] [address], [place], [place], [id number], tel:[phone] [facility] No Information 0-201 0 Grant OD Alexandr. [address] , [address], [place], [address], [place]. tel:[phone] [facility], [address], [place], [place], [address], [place] tel:[phone] [facility] No Information 4-200 9 Grant OD Alexandr. [address] , [address], [place], [address], [place]. tel:[phone] [facility], [address], [place], [place], [address], [place] tel:[phone] [facility] No Information Mar-0 6-200 8 Grant OD Alexandr. [address] [facility] , [address], [place], [place], [facility], . tel:[phone] [facility], [address], [place], [place], [address], [place] tel:[phone] [facility] No Information b-2 6-200 7 [facility] . [address] [facility] [address], [address], [place], [place], [address], [place]. tel:[phone] Referring Provider: Alexandr Grant OD A, [address] [facility] [address], [place], [place], [facility]. tel:[phone] sulting Provider: Monik Wong, [address] [place] [address], [facility]. tel:[phone] [facility], [address], [place], [place], [address], [place] tel:[phone] [facility] No Information b-2 4-200 7 Grant OD Alexandr. [address] [facility] , [address], [place], [place], [facility], . tel:[phone] Family History Family Member Type Diagnosis Age At Onset No Information Payers Payer name Insurance type Covered democrat ID Authoriza tion(s) No Information Social History [...]
--- NOTE | 2025-08-04 08:12 | ED_ITS ---
HPI - URI/Sore Throat General Chief Complaint: Upper Respiratory Infection Stated Complaint: Sore throat Time Seen by Provider: 08/04/25 08:18 Source: patient, RN notes reviewed and old records reviewed Mode of arrival: ambulatory Limitations: no limitations History of Present Illness HPI Narrative: 65-year-old female presents to the [facility] with complaints of a sore throat, cough, headache and low back pain. States this started 6 days ago. Reports a burning when she deep breath. Reports that when she cough she has low back pain. Denies any urinary symptoms. Denies chest pain, shortness of breath. States that she coughed up some green phlegm yesterday or day before. States it feels like phlegm is stuck. Denies fevers. Denies taking any medications until yesterday when she took 1 dose of Mucinex, states that it feels like it ?dehydrated her.? Onset (ago): day(s) (6) Treatments prior to arrival: cold medicine (x 1 dose yesterday) Related Data Home Medications ?Medication ?Instructions ?Recorded ?Confirmed ?Last Taken ?Type albuterol sulfate 90 mcg/actuation 2 puff inhalation P RN PRN SOB 11/15/21 08/19/23 Unknown History aerosol inhaler calcium 600 mg (as 1 tablet PO DAILY 07/29/2310/19/22 Unknown History carbonate)-vitamin D3 20 mcg (800 unit) tablet (Caltrate with Vitamin D3) melatonin 5 mg tablet 5 mg PO HS PRN Insomnia 07/0108/19/23 Unknown History Allergies Allergy/AdvReac Type Severity Reaction Status Date / Time clindamycin Allergy Severe HIVES Verified 08/04/25 08:35 doxycycline Allergy Severe HIVES Verified 08/04/25 08:35 Review of Systems Review of Systems: All systems reviewed & are unremarkable except as noted in HPI and below Constitutional: Constitutional: Reports no additional constitutional complaints ENT: Reports as per HPI Cardiovascular: Cardiovascular: Reports no additional cardiovascular complaints, Denies chest pain and Denies dyspnea Respiratory: Respiratory: Reports as per HPI, Denies chest congestion, Reports cough, Denies hemoptysis, Denies dyspnea, Denies stridor and Denies wheezing Musculoskeletal: Musculoskeletal: Reports as per HPI and Reports back pain (Low lumbar) Integumentary/Breasts: Skin/Breast: Reports system reviewed and no additional complaints, except as docu [facility] Past Medical History Medical History Arthritis of left knee BMI 22.0-22.9, adult Osteoarthritis of right knee Surgical History Surgical History Right anterior knee pain Right knee arthroscopy with wendy-patellar debridement August 05, 2023 History of total right knee 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/03/2021 History of vein stripping right leg History of arthroscopy of right knee History of repair of right rotator cuff Family History Family History Mother Heart disease Father Hypertension Heart disease Cancer Sibling Diabetes mellitus Hypertension Social History Social History Smoking packs per day: 0.5 Smoking cigarettes per day: 10.0 Years smoked: 10 Smoking pack-years: 5.00 Tobacco type: cigarettes Smoking end date: 09/29/79 Additional smoking assessment comments: DENIES ANY FORM OF TOBACCO USE Alcohol intake: current Drinks per week: 10 Substance use: never Substance use type: does not use Lack of Transportation: No Lack of Food: Never True Current Housing: I Have Housing Concerned About Future Housing: No Difficulty Paying Gas/Electric Bills: No Difficulty Paying for Meds: No Currently Unemployed: No Education: High School Diploma/GED Difficulty w/ Childcare or Family Care: No Living arrangements: with family Additional living arrangements comments: Occupation/Education: retired 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 There is no relevant family history pertinent to the patient complaint. Exam Const: General: cooperative, healthy appearing, comfortable, no acute distress, well developed, alert and well nourished Nutritional Appearance: well nourished Orientation/consciousness: patient oriented x3 Limitations: no limitations HENMT: Head: normal to inspection Ears: hearing grossly normal bilaterally, external ears normal, TM's normal bilaterally, EAC's normal, mastoids normal and no periauricular adenopathy Face and sinus: normal facial exam, sinuses nontender and face symmetric Mouth: Yes Normal oral and palatal mucosa present, Yes lip normal, Yes tongue normal and Yes moist mucous membranes Throat: posterior oropharynx normal, uvula midline and no uvular edema Eyes: General: appearance normal, both eyes and all related structures Alignment and Position: alignment normal Neck: Neck: normal visual inspection, full ROM, no lymphadenopathy and no meningeal signs Chest: Chest palpation & inspection: normal inspection of the chest Resp: Effort & Inspection: normal respiratory effort and able to speak in complete sentences Auscultation: clear to auscultation bilaterally, no crackles, no rales, no rhonchi and no wheezes Cardio: Rate: regular rate Skin: General skin exam: normal color and no rashes or lesions noted Neuro: General: patient oriented x3, gait normal, moves all extremities and no meningeal signs Cognition (Neuro): normal cognition Speech: normal speech Gait exam (Neuro): Normal gait present Extrem: General: normal to inspection, full ROM, capillary refill normal and normal gait Psych: Appearance: grossly normal and well kempt Mental Status: mental status grossly normal Speech and movement: Normal speech and movement present and Clear speech present Affect: normal affect Attitude: cooperative Course Course Level of Care: Express Care Visit Vital Signs Vital signs: Vital Signs Temperature 97.8 F 08/04/25 08:17 Pulse Rate 65 08/04/25 08:17 Respiratory Rate 18 08/04/25 08:17 Blood Pressure 108/87 08/04/25 08:17 Pulse Oximetry 99 08/04/25 08:17 Oxygen Delivery Room Air 08/04/25 08:17 Temperature 97.8 F 08/04/25 08:17 Pulse Rate 65 08/04/25 08:17 Respiratory Rate 18 08/04/25 08:17 Blood Pressure 108/87 08/04/25 08:17 Pulse Oximetry 99 08/04/25 08:17 Oxygen Delivery Room Air 08/04/25 08:17 Reviewed MDM - URI/Sore Throat MDM Narrative Medical decision making narrative: Patient sitting in exam room. Patient is nontoxic, vitals stable. Patient was 6 day history of a sore throat, cough. No acute findings noted on exam. Patient most likely with postnasal drainage at night. Has taken 1 dose of kzae-ssw-lhyzmqn products. Patient is appropriate for outpatient treatment with close follow Discharge instructions reviewed with patient, as well as provided in writing per nursing staff. The instructions also include specific and strict return/GO TO THE ER as well as f/u information. All questions have been answered, and the patient deny any further questions with discharge and discharge plan. Some parts of this dictation were generated by voice recognition software and may contain typographical and/or grammatical inaccuracies. Differential Diagnosis Differential diagnosis: Likely upper respiratory infection, otitis media, sinusitis, viral infection, bronchitis, influenza and pharyngitis Critical Care Time Critical Care Time Critical Care Time: No Discharge Plan Discharge Clinical Impression: Upper respiratory infection, viral Pharyngitis Qualifiers: Pharyngitis/tonsillitis etiology: unspecified etiology Qualified Code(s): J02.9 - Acute pharyngitis, unspecified Patient Disposition: Home Condition: Stable Instructions: Pharyngitis (ED), Upper Respiratory Infection (ED) Additional Instructions: Your symptoms are likely due to a viral illness, which is not treated with antibiotics. Typically viral infections last 7-10 days, can linger for couple of weeks. It is very important to treat your symptoms. Drink plenty of water, Gatorade, Pedialyte, ice pops or Jell-O. -Alternate Tylenol and Motrin per package directions for fever or pain. You can alternate every 4 hours -Antihistamine medication such as Zyrtec/Claritin/Citlali during the day can help improve symptoms. -doing daily nasal irrigations can help relieve pressure your sinuses. Things like a Neti pot -Use Flonase twice a day for 5 days then daily to help reduce the inflammation and dry up your sinuses. -You can also use Mucinex. Be sure to drink plenty of water with this medication at least 8 ounces with every dose and it is important to drink 8 to 10 glasses of water per day. Water is a natural decongestant -Eat and drink things that are easy to swallow, like tea or soup, or popsicles. -Oral rinses such as: Salt water gargles and/or may use topical anesthetic (eg. Chloraseptic spray) or lozenges to relieve dryness or throat pain). -Frequent hand washing or hand dry wall finisher is one of the best ways to prevent spread of infection. -Using a vaporizer or humidifier at night will also help thin secretions and help with coughing up phlegm. -Follow up with primary care provider in 7-10 days if condition is not improving - For new or worsening symptoms go directly to the nearest ER Patient Language: Kazakh Prescriptions: New methylprednisolone [Medrol (Brian)] 4 mg tablets,dose pack See Rx Instructions PO .COMPLEX Qty: 21 0RF Rx Instructions: orally per package directions No Action melatonin 5 mg Tablet 5 mg PO HS PRN (Reason: Insomnia) calcium carbonate-vitamin D3 [Caltrate with Vitamin D3] 600 mg-20 mcg (800 unit) Tablet 1 tablet PO DAILY albuterol sulfate 90 mcg/actuation HFA aerosol inhaler 2 puff INHALATION PRN PRN (Reason: SOB) Follow-up/Referrals: Yoni,MD Sayda [Primary Care Provider, Unknown] - 2 Weeks Clinical Impression: Upper respiratory infection, viral Stand Alone Forms: Work/School Release IP Time of Disposition: 08:37
[2025-08-04 08:17] VITALS: BP 108/87; PULSE 65; RESP 18; TEMP 36.6; O2SAT 99
--- OUTSIDE RECORDS SUMMARY | 2025-08-04 17:02 | XMS_ITS | Encounter Summary ---
Author Organization [facility] Address 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
--- OUTSIDE RECORDS SUMMARY | 2025-08-04 17:02 | XMS_ITS | Encounter Summary ---
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 Historical Provider Final Res ult documented in this encounter Visit Diagnoses Not on filedocumented in this encounter Care Teams Exhibit Display Representative Relationship Specialty Start Date End Date Sayda Vallejo MD [address] [place] [address] PCP - General Family Medicine 12/22/18 documented as of this encounter
--- OUTSIDE RECORDS SUMMARY | 2025-08-04 17:02 | XMS_ITS | Clinical Summary ---
Author Organization [address] Address [address] [place] [id number] Care Team Providers Care Tyre Builder Name Role Phone Sayda Vallejo MD Primary Care Provi ronaldo Allergies Active Allergy Reactions Criticality Noted Date Comments Clindamycin Hcl Hives Medium 01/25/2019 Doxycycline Hives Medium 01/25/2019 Medications albuterol HFA (ProAir HFA) 90 mcg/actuation inhaler Inhale 2 puffs every 4 (four) hours as needed for wheezing or shortness of breath 8.5 g 5 3 Active busPIRone (BUSPAR) 5 mg tabletIndicatio ns:Generalized Anxiety Disorder Take 1 tablet (5 mg total) by mouth 2 (two) times a day 60 tablet 2 5 Active Active Problems Problem Noted Date Diagnosed Date Arm mass, right 03/12/2024 Assessment & Plan (03/30/2024 10:38 AM CDT): Nontender subcutaneous mass to the anterior mid right forearm. Patient noticed it after she fell and thinks it may have been from the trauma. She has had several tests done for the mass initially was tender but is now not tender. She denies any decreased range of motion motor sensory deficits. The nodule is mobile something like a lipoma. No fluctuance noted. No signs of infection. There is no vascular compromise due to the small nodule. Patient has good surrounding pulses. Is thought to be less likely a peripheral neurogenic tumor since this came about after her fall and localized trauma. No vascular intervention is needed at this time. Patient voiced her understanding is in absolute agreeance. States a long as there is nothing wrong, she is okay with leaving it alone. Plan: Follow-up as needed. Assessment & Plan (03/12/2024 8:58 AM CDT): Acute, persistent Likely vascular? Superficial vein thrombosis vs other Warm compresses Recheck ultrasound in 3 months- sooner if there are any changes Consider follow up with vascular Update me with any changes Recurrent major depressive disorder, in full rem ission 12/23/2023 Preoperative clearance 06/26/2023 Vaginal dryness 06/19/2023 Assessment & Plan (06/19/2023 8:30 AM CDT): Chronic, stable Managed by gynecology Update me with any questions or concerns Encouraged using vaginal lubrication Mitral valve prolapse 09/13/2022 Assessment & Plan (06/19/2023 7:51 AM CDT): Chronic, stable Managed by Cardiology Continue to monitor Arthritis of right knee 11/19/2021 Assessment & Plan (06/19/2023 8:26 AM CDT): Chronic, with progression -now needing surgery She will need cardiac clearance prior to her surgery Medically, she is low risk We can complete her forms as long as they do not state that it has to be exactly 30 days out Update me with any changes or concerns Update me after her procedure Assessment & Plan (11/19/2021 8:44 AM PETROLOGIST): Cardiac clearance completed through cardiology Low risk for her procedure- pending her labs Update me with any changes Update me after the surgery Call for questions or concerns Dizziness 09/14/2021 Adjustment insomnia 09/20/2020 Assessment & Plan (06/19/2023 8:26 AM CDT): Chronic, uncontrolled , but doing better Continue healthy habits for sleep Assessment & Plan (07/25/2021 10:06 AM CDT): Continue trazodone Assessment & Plan (09/20/2020 7:53 AM PETROLOGIST): I reviewed with the patient her medication options. I reviewed with benzos there is a risk of addiction habit-forming problems Will do a trial of trazodone 1 tab to half tab nightly as needed Reviewed the risk of medicine including fatigue and drowsiness Update me in the new year Call for questions or concerns Ectopic beats 09/15/2020 Assessment & Plan (06/19/2023 7:47 AM CDT): Chronic, asymptomatic Managed by Cardiology Continue to monitor Assessment & Plan (07/25/2021 7:01 AM CDT): Continue to monitor Follow-up with cardiology as needed Nonrheumatic aortic (valve) insufficiency 2019 Assessment & Plan (06/19/2023 7:51 AM CDT): Chronic, stable Managed by Cardiology Assessment & Plan (07/25/2021 7:02 AM CDT): Previously evaluated by Cardiology Will need repeat echocardiogram in 2022 Palpitations 07/28/2020 Assessment & Plan (06/19/2023 7:51 AM CDT): Chronic, stable Managed by Cardiology Continue to monitor Assessment & Plan (07/25/2021 10:10 AM CDT): asymptomatic Encounter for annual wellness exam in Medicare p atient 07/12/2020 Overview (06/19/2023): Encouraged a healthy diet, and regular physical activity to her level Pt has a POA/Living will Health Maintenance: Last PAP: through HOSIERY OPERATOR Last mammogram: 04/2021, 05/20- WNL Last DEXA: 08/2020- low bone mass Last colonoscopy: 07/2020- repeat in 10 years Last Tdap:06/2020 Last Shingrix: encouraged Last Flu: today Last RSV: Up to date Last COVID: encouraged Assessment & Plan (06/19/2023 8:18 AM CDT): Encouraged a healthy diet, and regular physical activity to her level Pt has a POA/Living will Health Maintenance: Last PAP: through HOSIERY OPERATOR Last mammogram: 04/2021, 05/20- WNL Last DEXA: 08/2020- low bone mass Last colonoscopy: 07/2020- repeat in 10 years Last Tdap:06/2020 Last Shingrix: encouraged Last Flu: today Last RSV: Up to date Last COVID: encouraged Assessment & Plan (07/25/2021 10:04 AM CDT): Encouraged a healthy diet, and regular physical activity to her level Wear sun screen, seat belts No texting/drinking and driving Health Maintenance: Last PAP: through HOSIERY OPERATOR Last mammogram: 04/2021- WNL Last DEXA: 08/2020- low bone mass Last colonoscopy: 07/2020- repeat in 10 years Last Tdap:06/2020 Last Shingrix: encouraged Last Flu: encouraged Last COVID: up to date Assessment & Plan (07/12/2020 7:35 AM CDT): Work on healthy low carb diet Healthy activity for 30 minutes daily Wear sun screen, seat belts No texting/drinking and driving Health Maintenance: Last PAP:through HOSIERY OPERATOR Last mammogram: 05/03/2020-NEG Last DEXA: ordered Last colonoscopy:scheduled 08/14/2020 Last Tdap: Tdap Last pneumonia/Prevnar: @63 Last Shingrix: encouraged Last Flu: today Former smoker 07/12/2020 Assessment & Plan (06/19/2023 8:27 AM CDT): She is not a one pack per day or [address] chest for further guidance, but would need approval via Medicare Assessment & Plan (07/25/2021 10:06 AM CDT): No current smoking Seasonal allergic rhinitis 07/12/2020 Assessment & Plan (07/25/2021 10:11 AM CDT): Stable Continue supportive care Assessment & Plan (07/12/2020 8:02 AM CDT): Discussed environmental controls No smoking around patient, no animals in bedroom, keep windows closed, no hanging clothes on the line Take claritin/zyrtec/shree in the morning Flonase at bedtime Use the saline rinses/netipot in nose twice daily and as needed If working outside, may need to do saline rinses when coming in and change clothes right away Generalized anxiety disorder 01/25/2019 Assessment & Plan (06/19/2023 8:27 AM CDT): Chronic, uncontrolled Currently off medication , but mood is doing well Continue supportive care for mood Update me if her symptoms change or worsen Assessment & Plan (11/19/2021 8:50 AM PETROLOGIST): Recurrent, currently uncontrolled Will start lexapro 5 mg daily Patient reiterated no suicidal thoughts at this time; contact 911 and go to the ER if becomes suicidal take medication as directed discussed side effects of medication with patient encouraged healthy diet and exercise encouraged patient to see a counselor use support structures you have in place consider meditation-look at Calm isabella try to work on healthy sleep habits If mood worsens or changes, please contact the office Anything emergent, to the er Assessment & Plan (07/25/2021 10:07 AM CDT): Continue as needed atarax Continue trazodone Consider further medication as needed Assessment & Plan (04/05/2021 9:53 AM CDT): Continue atarax as needed Work on healthy changes for her mood Update me if her mood worsens or changes Call for questions or concerns Assessment & Plan (09/20/2020 7:54 AM PETROLOGIST): Patient has not done well with daily medicine the past We reviewed the risk of benzodiazepines Will do a trial of Atarax to use when she feels her panic is stronger Will use trazodone at night for insomnia If her symptoms change or worsen I do want her to reach out to me Call for questions or concerns Assessment & Plan (07/12/2020 7:39 AM CDT): Currently doing well with as needed medication Continue to monitor symptoms Call for questions or concerns Assessment & Plan (06/15/2019 4:46 PM CDT): Encouraged to take lexapro daily Atarax as needed Consider therapy Update me in 4 weeks Depending on how mood is doing and how she takes her medication will determine the next step Call for questions or concerns Assessment & Plan (01/25/2019 4:40 PM CDT): Will start a low dose of lexapro Use the isabella calm Use the support structures in place Follow up in 4-6 weeks Other constipation 01/25/2019 Assessment & Plan (07/25/2021 10:10 AM CDT): Stable Continue to monitor Assessment & Plan (07/12/2020 8:01 AM CDT): Continue to follow with GI Continue supportive care to improve bowel habits including fiber, hydration Assessment & Plan (01/25/2019 4:42 PM CDT): Start fiber in diet- consider metamucil Stay hydrated Consider a daily probiotic Monitor symptoms Update me in 4-6 weeks-sooner if there is an issue Leukopenia 01/09/2018 Assessment & Plan (06/19/2023 8:28 AM CDT): Chronic, stable Previously managed by Hematology, but now released Continue to monitor Assessment & Plan (07/25/2021 10:09 AM CDT): Mildly decreased white blood cells Recheck in 3-6 months Low bone mass 04/07/2017 Assessment & Plan (06/19/2023 8:28 AM CDT): Chronic, stable Encouraged to take her calcium and vitamin-D regularly Follow-up bone density ordered Assessment & Plan (07/25/2021 10:09 AM CDT): Continue calcium and vitamin d Assessment & Plan (09/20/2020 7:54 AM PETROLOGIST): She can take Citracal 1 tab daily Mild mitral insufficiency 12/24/2016 Assessment & Plan (06/19/2023 7:51 AM CDT): Chronic, stable Managed by Cardiology Continue to follow with them Assessment & Plan (07/25/2021 7:02 AM CDT): Previously evaluated by Cardiology Will need echocardiogram in 2022 Abnormal EKG 12/24/2016 Assessment & Plan (06/19/2023 8:56 AM CDT): EKG today showed SB, RSR', left atrial enlargement, and T wave changes- this is different from her last EKG Will update Dr Cote Continue to follow with Cardiology Assessment & Plan (07/25/2021 7:00 AM CDT): Normal stress test Follow-up with cardiology as directed Assessment & Plan (07/12/2020 8:07 AM CDT): SB, changes in the anterolateral leads, flipped T waves Will refer to cardiology Varicose veins of bilateral lower extremities wi th pain 11/20/2016 Assessment & Plan (02/16/2024 3:29 PM CDT): Bilateral lower extremity CEAP C3 disease symptomatic varicosities, risks benefits alternatives to right great saphenous vein radiofrequency ablation and stab phlebectomies discussed, risks including bleeding, infection, DVT/PE, thermal injury, need further surgery. She wished proceed. Assessment & Plan (06/19/2023 8:29 AM CDT): Chronic, stable Encouraged using her compression stockings with activity Assessment & Plan (07/25/2021 10:11 AM CDT): Encouraged support stockings Hyperlipidemia 10/15/2016 Assessment & Plan (06/19/2023 8:27 AM CDT): Chronic, uncontrolled ASCVD score 4.4% Continue to monitor Continue healthy diet changes Assessment & Plan (07/25/2021 10:07 AM CDT): CVD 2.8% Continue to work on healthy changes Assessment & Plan (07/12/2020 7:39 AM CDT): Labs ordered Resolved Problems Problem Noted Date Diagnosed Date Resolved Date Preoperative clearance 11/06/202106/19 Assessment & Plan (11/19/2021 8:51 AM PETROLOGIST): Likely low risk Cardiac clearance completed Sciatica of right side 04/05/202107/25 Assessment & Plan (04/05/2021 9:55 AM CDT): Will start flexeril as needed Will start prednisone burst- reviewed the risks/benefits of medication including future risk of bone loss/fracture We discussed an xray- will check xray Consider PT Update me in 1-2 weeks Call if symptoms change or worsen Shortness of breath 07/28/2020 06/19/20 23 Assessment & Plan (07/25/2021 10:11 AM CDT): resolved Groin pain, left 08/13/2019 07/12/2020 Assessment & Plan (08/13/2019 4:33 PM PETROLOGIST): Ibuprofen 200 mg 4 tablets TID a day with food x 1 week. Recommended to apply ice to affected area for 15-20 minutes every hour while awake for swelling and pain. Advised if symptoms worsen, don't improve, or new symptoms develop, follow-up with PCP in 3-5 days. Cough 03/09/2019 07/12/2020 Assessment & Plan (03/09/2019 3:32 PM CDT): Will start with prednisone burst Will start cheratussin Call if symptoms change or worsen Recurrent major depressive d isorder, in partial remission 01/25/2019 12/23/2023 Assessment & Plan (06/19/2023 8:28 AM CDT): Chronic, uncontrolled -but doing better Continue healthy habits for her mood Update me with any questions or concerns Assessment & Plan (11/19/2021 8:51 AM PETROLOGIST): No depression currently Will start lexapro Reviewed healthy changes for her mood Assessment & Plan (07/25/2021 10:10 AM CDT): Mood is doing fair Continue to monitor Call for questions or concerns Assessment & Plan (04/05/2021 9:53 AM CDT): We discussed referral to therapist- declined Continue healthy changes for her mood Call for questions or concerns Assessment & Plan (07/12/2020 7:39 AM CDT): Resolved Continue healthy changes for mood Call for questions or concerns Assessment & Plan (06/15/2019 4:46 PM CDT): Take lexapro daily Consider therapy Update me in 4 weeks Call for questions or concerns Assessment & Plan (03/09/2019 3:33 PM CDT): Psychological condition is unchanged. start lexapro, work on healthy changes mood, work on good sleep, call if symptoms change or worsen Psychological condition will be reassessed in 4 weeks. Assessment & Plan (01/25/2019 4:40 PM CDT): Patient reiterated no suicidal thoughts at this time; contact 911 and go to the ER if becomes suicidal; take medication as directed; discussed side effects of medication with patient; encouraged healthy diet and exericise; encouraged patient to see a counselor, use support structures you have in place, consider meditation-look at Calm isabella, and try to work on healthy sleep habits Smoking 12/24/2016 07/12/2020 Anxiety 11/19/2021 Assessment & Plan (11/19/2021 8:49 AM PETROLOGIST): Recurrent, currently uncontrolled Will start lexapro 5 mg daily Patient reiterated no suicidal thoughts at this time; contact 911 and go to the ER if becomes suicidal take medication as directed discussed side effects of medication with patient encouraged healthy diet and exercise encouraged patient to see a counselor use support structures you have in place consider meditation-look at Calm isabella try to work on healthy sleep habits If mood worsens or changes, please contact the office Anything emergent, to the er Encounters Date Type Department Care Team Description 07/08/2025 7:40 AM CDT - 07/08/2025 11:59 PM CDT Hospital Encounter [facility] Office Bldg 1 [facility] [address] [place] [address] Osteoporosis, unspecified osteoporosis type, unspecified pathological fracture presence; Screening for osteoporosis; Menopause Discharge Disposition: Discharge to home or self care 05/26/2025 8:30 AM CDT Office Visit [facility] [address] [place] [address] Nagi Cote MD Dyspnea on exertion (Primary Dx); Nonrheumatic aortic (valve) insufficiency; Nonsustained ventricular tachycardia (HCC) from Last 3 Months Immunizations Immunization Administration Dates Next Due Influenza, Quadrivalent, Hig h Dose, Preservative Free, Intrr 06/19/2023 Influenza, Quadrivalent, Spl it, Preservative Free, Intramuscular 07/12/2020,08/01/2018 Influenza, Trivalent, IM (MDV) 09/20/2021 Influenza, Trivalent, Preser vative Free, Intramuscular 06/28/2016,10/12/2012 Influenza, Unspecified 06/29/2024(Deferr ed: Patient Refused),06/29/2022(Deferred: Patient Refused),06/29/2022(Deferred: Patient Refused),06/29/2022(Deferred: Patient Refused),06/29/2021(Deferred: Patient Refused),06/29/2015 Pfizer SARS-CoV-2 Monovalent Vaccination (12+ Yrs) PURPLE 12/03/2020,11/12/2020 Pneumococcal Conjugate Pcv20 06/19/2023 Tdap 07/12/2020 Surgical History Surgery Date Site/Laterality Comments TUBAL LIGATION SHOULDER SURGERY KNEE SURGERY Right COSMETIC SURGERY Not sure if cosmetic , but had vein closure in right leg a few years ago JOINT REPLACEMENT December 03, 2021 - right knee Medical History Medical History Date Comments Hypertension Anxiety Tobacco use Mitral valve insufficiency Depression just occasionally Varicella Family History Medical History Relation Name Comments Diabetes Brother Buzz Schuster Jr. Cancer Father Buzz Mariely, Sr. Heart attack Father Buzz Mariely, Sr. Heart disease Father Buzz Mariely, Sr. COPD Mother Betty Galvez Depression Mother Betty Galvez Heart disease Mother Betty Galvez Diabetes Sister Cristina Herring Relation Name Status Comments Brother Buzz Schuster . Father Buzz Schuster, Sr. Mother Betty Galvez Sister Cristina Herring Social History Tobacco Use Types Packs/Day Years Used Date Smoking Tobacco: Former Cigarettes Q uit: 09/29/1974 Smokeless Tobacco: Never Tobacco Cessation:Counseling Given: Not Answered Comments:Did not smoke continuously and have not smoked in over 35 years or longer Alcohol Use Standard Drinks/Week Comments Yes 0 (1 standard drink = 0.6 oz pur e alcohol) AUDIT-C Answer Date Recorded Q1: How often do you have a drink containing alc ohol? Patient declined 03/18/2025 Q2: How many drinks containi ng alcohol do you have on a typical day when you are drinking? Patient declined 03/18/2025 Q3: How often do you have si x or more drinks on one occasion? Patient declined 03/18/2025 PHQ-2 Answer Date Recorded PHQ-2 Total Score (If total score is 3 or more points, staff should administer the PHQ-9) 0 03/17/2025 PHQ-9 Answer Date Recorded PHQ-9 Total Score 4 03/18/2025 Comments No Sex and Gender Information Value Date Recorded Sex Assigned at Not on file Legal Sex Female 8:17 PM PETROLOGIST Gender Identity Female 09/13/2021 7:41 PM PETROLOGIST Sexual Orientation Not on file Last Filed Vital Signs Vital Sign Reading Time Taken Comments Blood Pressure 110/74 05/26/2025 8:12 AM CDT Pulse 64 05/26/2025 8:12 AM CDT Temperature 36.6 C (97.8 F) 03/18/2025 7:44 AM CDT Respiratory Rate 18 03/18/2025 7:44 AM CDT Oxygen Saturation 97% 03/18/2025 7:44 AM CDT Inhaled Oxygen Concentration - - Weight 63.6 kg (140 lb 4.8 oz) 05/26/2025 8:12 A M CDT Height 165.7 cm (5' 5.25) 05/26/2025 8:12 AM CD T Body Mass Index 23.17 05/26/2025 8:12 AM CDT Plan of Treatment Health Maintenance Due Date Last Done Comments Hepatitis B Screening 1976 Zoster Vaccine (1 of 2) 2008 Covid-19 Vaccine (2024-2 6 season) 2025 02/08/2022, 07/11/2021, 12/03/2020, Additional history exists Influenza Vaccine (#1) 2025 , 09/20/2021, 07/12/2020, Additional history exists Breast Cancer Screening-Mammogram 08/09/2025 08/09/2024, 08/09/2024, 07/10/2023, Additional history exists Depression Screening 03/18/2026 03/18/2025, 03/18/2025, 03/12/2024, Additional history exists Fall Risk Assessment 03/18/2026 03/18/2025, 06/19/20 23 Well Visit 65+ 03/18/2026 03/18/2025, 05/31, 06/19/2023, Additional history exists Osteoporosis Screening-Bone Density Scan 07/08/2027 07/08/2025, 07/10/2023, 07/10/2023, Additional history exists DTaP/Tdap/Td Vaccine (2 - Td or Tdap) 07/12/2030 07/12/2020 Colon Cancer Screening-Colonoscopy 08/14/2030 08/14/2020 Cervical Cancer Screening Discontinued 08/03/2018 Hepatitis C Screening Completed 07/18/2020 Colon Cancer Screening-CT Colonography Discontinued 08/14/2020 Colon Cancer Screening-DNA Stool Discontinued 08/14/20 Colon Cancer Screening-FIT Discontinued 08/14/2020 Colon Cancer Screening-Sigmoidoscopy Discontinued 08/14/2020 Pneumococcal vaccine 65+ Completed 06/19/2023 Procedures Procedure Name Priority Date/Time Associated Diagnosis Comments DEXA AXIAL SKELETON BONE DENSITY 1 OR MORE SITES Schedule Routine, Read Routine (OP Routine) 07/08/2025 7:59 AM CDT Osteoporosis, unspecified osteoporosis type, unspecified pathological fracture presence Screening for osteoporosis Menopause HM MAMMOGRAPHY Routine 07/10/2023 COLONOSCOPY Routine 08/14/2020 HEPATITIS C ANTIBODY Routine 07/18/2020 6:06 AM CDT Need for hepatitis C screening test HM PAP SMEAR WITH HPV Routine 08/03/2018 from Last 3 Months or Most Recently Relevant to Health Maintenance Results * Dexa Axial Skeleton Bone Density 1 or 2 Site (07/08/2025 7:59 AM CDT) Anatomical Region Laterality Modality Body N/A Mammography 07/08/2025 1:05 PM CDT Narrative 07/08/2025 1:09 PM CDT EXAM DESCRIPTION: DEXA AXIAL SKELETON BONE DENSITY 1 OR MORE SITES REASON FOR STUDY: 65 y/o year old F with given history of: osteoporosis 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 CLINICAL INFORMATION: Current height: 65 inches Maximum height: 66 inches Weight: 140 pounds Risk factors: Postmenopausal COMPARISON: 09/07/2020 FINDINGS: AP LUMBAR SPINE L1-L4: Total BMD is 0.762 g/cm2 T-score is -2.6 This is decreased in comparison to prior exam which is statistically significant. LEFT HIP: Total BMD is 0.708 g/cm2 T-score is -1.9 This is decreased in comparison to prior exam which is statistically significant. Femoral neck BMD is 0.568 g/cm2 T-score is -2.5 FRAX: FRAX not reported due to T-scores of hip, femoral neck and/or spine being at or below -2.5 (Osteoporosis). IMPRESSION: 1. Osteoporosis. REFERENCE: Bone mineral density: T-Score: Normal (T-score above or = -1.0) Low bone mass (T-score between -1.0 and -2.5) replaces the previously used term osteopenia Osteoporosis (T-score = or below -2.5) Z-Score: Within the expected range for age (Z-score above -2.0) Below the expected range for age (Z-score is -2.0 or below) Please see below follow up recommendations. Medical evaluation for secondary causes of low bone mineral density may be appropriate. FRAX is a World Health Organization validated fracture risk assessment tool that calculates a person's 10 year probability of a major osteoporosis related fracture and hip fracture. According to the National Osteoporosis Foundation guidelines, postmenopausal women and men age 50 or older with low bone mass and a 10 year probability of a major osteoporosis related fracture = or greater than 20% or a 10 year probability of a hip fracture = or greater than 3% should be considered for pharmacological treatment for the prevention of osteoporosis. For further information, including treatment recommendations, please refer to the 2019 ISCD Official Positions (http://www.iscd.org) and the NOF's Clinician's Guide to Prevention and Treatment of Osteoporosis (http://www.nof.org/professionals/clinical-guidelines) THIS IS AN ELECTRONICALLY VERIFIED FINAL REPORT 07/08/2025 1:09 PM - Electronically signed by Sunil Marcus M.D. 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 CLINICAL INFORMATION: Current height: 65 inches Maximum height: 66 inches Weight: 140 pounds Risk factors: Postmenopausal COMPARISON: 09/07/2020 FINDINGS: AP LUMBAR SPINE L1-L4: Total BMD is 0.762 g/cm2 T-score is -2.6 This is decreased in comparison to prior exam which is statistically significant. LEFT HIP: Total BMD is 0.708 g/cm2 T-score is -1.9 This is decreased in comparison to prior exam which is statistically significant. Femoral neck BMD is 0.568 g/cm2 T-score is -2.5 FRAX: FRAX not reported due to T-scores of hip, femoral neck and/or spine beingat or below -2.5 (Osteoporosis). IMPRESSION: 1. Osteoporosis. REFERENCE: Bone mineral density: T-Score: Normal (T-score above or = -1.0) Low bone mass (T-score between -1.0 and -2.5) replaces thepreviously used term osteopenia Osteoporosis (T-score = or below -2.5) Z-Score: Within the expected range for age (Z-score above -2.0) Below the expected range for age (Z-score is -2.0 or below) Please see below follow up recommendations. [facility] causes of low bone mineral density may be appropriate. FRAX is a World Health Organization validated fracture risk assessmenttool that calculates a person's 10 year probability of a major osteoporosisrelated fracture and hip fracture. According to the National OsteoporosisFoundation guidelines, postmenopausal women and men age 50 or older with low bonemass and a 10 year probability of a major osteoporosis related fracture = or greater than 20% or a 10 year probability of a hip fracture = or greaterthan 3% should be considered for pharmacological treatment for the preventionof osteoporosis. For further information, including treatment recommendations, please referto the 2019 ISCD Official Positions (http://www.iscd.org) and the NOF's Clinician's Guide to Prevention and Treatment of Osteoporosis (http://www.nof.org/professionals/clinical-guidelines) THIS IS AN ELECTRONICALLY VERIFIED FINAL REPORT 07/08/2025 1:09 PM - Electronically signed by Sunil Marcus M.D. MF: [id number] Report ID: [id number] Reading Location: [id number] Rosario Hurtado TECH INTERN IMG DXA PROCEDURES Final Res ult * HM MAMMOGRAPHY (07/10/2023) Mammography Normal Historical Provider HEALTH MAINTENANCE Final Result * Colonoscopy (08/14/2020) Anatomical Region Laterality Modality Other Historical Provider ENDOSCOPY PROCEDURES Krys l Result * Hepatitis C antibody (07/18/2020 6:06 AM CDT) Hep C Ab NONREACT NONREACTIVE [facility] Comment: Siemens CentaurXP using DAMIÁN (chemiluminescent immunoassay) technology. NONREACTIVE: Antibodies to Hepatitis C not detected. This does not exclude early acute Hepatitis C infection, possibility of exposure to Hepatitis C, antibodies below detection limit, or to lack of antibody reactivity to the antigen used in this assay. EQUIVOCAL: Antibodies to Hepatitis C may or may not be present. Sample to be confirmed by real-time PCR method. REACTIVE: Antibodies to Hepatitis C detected.Sample to be confirmed by real-time PCR method. Blood specimen (specimen) 07/18/2020 6:06 AM CDT 07/18/2020 6:09 AM CDT Narrative Resulting Agency Comment CLI Sayda Vallejo MD LAB MICROBIOLOGY - GENERAL ORDERABLES Final Result Performing Organization Address City/State/[facility] Co de Phone Number [place] [id number] [address] [phone] * PAP SMEAR WITH HPV (08/03/2018) Historical Provider HEALTH MAINTENANCE Final Result from Last 3 Months or Most Recently Relevant to Health Maintenance Insurance [facility] MEDICARE ADVANTAGE [facility] MEDICARE ADVANTAGE [facility] MEDICARE ADVANTAGE Care Teams Tyre Builder Relationship Specialty Start Date End Date Sayda Vallejo MD [address] [place] [id number] PCP - General Family Medicine 12/22/18
--- OUTSIDE RECORDS SUMMARY | 2025-08-04 17:02 | XMS_ITS | Encounter Summary ---
Author Organization [facility] Care Team Providers Care Dog Hair Clipper Name Role Phone Sayda Vallejo MD Primary Care [facility] Encounter Details Date Type Department Care Team (Latest Contact Info) Description 11/20/2016 Orders Only MMG CLINCONV ProviderFariba MD [address] [place] [id number] Social History Tobacco Use Types Packs/Day Years Used Date Smoking Tobacco: Never Assessed Comments Unknown Sex and Gender Information Value Date Recorded Sex Assigned at Not on file Legal Sex Female 8:17 PM BRICK LAYER Gender Identity Female 09/13/2021 7:41 PM BRICK LAYER Sexual Orientation Not on file documented as of this encounter Functional Status documented as of this encounter Plan of Treatment Not on file documented as of this encounter Procedures Procedure Name Priority Date/Time Associated Diagnosis Comments CARDIOLOGY REPORT 11/20/2016 12: 00 AM BRICK LAYER documented in this encounter Results * CARDIOLOGY REPORT (11/20/2016 12:00 AM BRICK LAYER) Anatomical Region Laterality Modality Other Narrative 11/20/2016 12:00 AM BRICK LAYER Ordered by an unspecified provider. Historical Provider [facility] AMANDA CAMPUZANO Final Result documented in this encounter Visit Diagnoses Not on filedocumented in this encounter Care Teams Dog Hair Clipper Relationship Specialty Start Date End Date Sayda Vallejo MD [address] [place] [address] PCP - General Family Medicine 12/22/18 documented as of this encounter
--- OUTSIDE RECORDS SUMMARY | 2025-08-04 17:02 | XMS_ITS | Clinical Summary ---
Author Organization [facility] Address [address] [place] [id number] Care Team Providers Care Branch Lead Name Role Phone Vivian Vallejo MD Primary Care Provider Social History Tobacco Use Types Packs/Day Years Used Date Smoking Tobacco: Never Assessed Comments Unknown Sex and Gender Information Value Date Recorded Sex Assigned at Not on file Legal Sex Female 5:05 PM CDT Gender Identity Not on file Sexual Orientation Not on file Last Filed Vital Signs Vital Sign Reading Time Taken Comments Blood Pressure 110/64 01/16/2016 2:17 PM CDT Pulse 105 01/16/2016 2:17 PM CDT Temperature - - Respiratory Rate - - Oxygen Saturation - - Inhaled Oxygen Concentration - - Weight 66.7 kg (147 lb) 01/16/2016 2:17 PM CDT Height 167.6 cm (5' 6) 10/31/2014 3:38 PM DIRECT SERVICE PROFESSIONAL Body Mass Index 23.73 10/31/2014 3:38 PM DIRECT SERVICE PROFESSIONAL Plan of Treatment Upcoming Encounters Date Type Department Care Team (Late st Contact Info) Description 08/11/2025 8:20 AM DIRECT SERVICE PROFESSIONAL Appointment [facility] [place] [address] Sunil Silverio MD [address] [address] Health Maintenance Due Date Last Done Comments Colorectal Cancer Screening Colonoscopy (10 Years) 1958 Hepatitis C 1976 Zoster Vaccines (1 of 2) 2008 Annual Medicare Wellness Visit 2023 COVID-19 Vaccine ( season) 2025 12/03/2020, 11/12/2020 Influenza Adult (#1) 2025 09/20/2021, 07/12/2020, 08/01/2018, Additional history exists Mammogram Screening 08/09/2026 08/09/2024, 07/10/2023, 05/14/2022, Additional history exists DTaP, Tdap and Td Vaccines (2 - Td or Tdap) 07/12/2030 07/12/2020 RSV Immunization or 60+ Years (1 - 1-dose 75+ series) 2033 Pneumococcal Vaccine: 50+ Years Completed 06/19/2023 Dexa Scan (General) Completed 07/10/2023, 09/07/2020, 04/04/2017 Hepatitis A Vaccines Aged Out No long er eligible based on patient's age to complete this topic Meningococcal B Vaccine Aged Out No l onger eligible based on patient's age to complete this topic Meningococcal Vaccine Aged Out No rohit sandrine eligible based on patient's age to complete this topic RSV Immunizations Under 20 Months Aged Out No longer eligible based on patient's age to complete this topic Procedures Procedure Name Priority Date/Time Associated Diagnosis Comments MG DIAG W GUERA BILAT DIGI Routine 08/09/2024 8:50 AM DIRECT SERVICE PROFESSIONAL Other signs and symptoms in breast BONE DENSITY/DEXA Routine 07/10/2023 8:4 0 AM CDT Postmenopausal state from Last 3 Months or Most Recently Relevant to Health Maintenance Results * MG DIAG W GUERA BILAT DIGI (08/09/2024 8:50 AM DIRECT SERVICE PROFESSIONAL) Anatomical Region Laterality Modality Breast Bilateral Mammography 08/09/2024 1:38 PM DIRECT SERVICE PROFESSIONAL Impressions 08/09/2024 1:47 PM DIRECT SERVICE PROFESSIONAL =====IMPRESSION:===== No mammographic or sonographic findings suggestive of malignancy ASSESSMENT: ACR BI-RADS 1 - NEGATIVE Recommendation: 1: Routine Screening Bilateral Ordered By: SUNIL SILVERIO Interpreted By: You Hayes MD, 08/09/2024 1:38 PM Narrative 08/09/2024 1:47 PM DIRECT SERVICE PROFESSIONAL [facility] [address] [place] [address] EXAMINATION: Digital bilateral diagnostic mammogram with 3-D tomography; left breast ultrasound [id number] EXAM DATE/TIME: 08/09/2024 8:30 AM REASON FOR EXAM: Left breast pain and pulling sensation. Intermittent symptoms. COMPARISON: 07/10/2023, 05/14/2022 TECHNIQUE: Digital diagnostic mammography of both breasts was performed in addition to 3-D Tomosynthesis technique. This study was read with the assistance of a computer-aided detection system. Left breast ultrasound was performed. TISSUE DENSITY: The breasts are heterogeneously dense, which may obscure small masses. FINDINGS: Mammogram findings: No suspicious masses, malignant appearing calcifications, skin thickening or other abnormalities are present. No significant change from the prior exam. Ultrasound findings: Targeted ultrasound was performed in the symptomatic area of the left breast laterally, covering a large area of the upper and lower outer quadrants from the nipple to the chest wall. Ultrasound reveals only benign-appearing fibroglandular and fatty tissues. No suspicious solid or cystic mass lesion or other abnormality is demonstrated. Visualized left axillary lymph nodes are unremarkable. us Sunil Silverio MD MAMMO Final Resu lt * BONE DENSITY/DEXA (07/10/2023 8:40 AM CDT) Anatomical Region Laterality Modality Bone Mammography 07/10/2023 9:57 AM CDT Impressions 07/10/2023 9:58 AM CDT IMPRESSION: WHO Classification: Osteoporosis. RECOMMENDATIONS: All patients should ensure an adequate intake of dietary calcium and vitamin D. The NOF recommend adults under the age of 50 need 1000 mg of calcium and 400-800 IU of vitamin D daily. Effective therapy for the prevention and treatment of osteoporosis include bisphosphonates. FOLLOW-UP: People with diagnosed cases of osteoporosis or at high risk for fracture should have regular bone mineral density test. For patients eligible for Medicare, routine testing is allowed once every 2 years. Testing frequency can be increased to one year for patients who have rapidly progressing disease, those who are receiving or discontinuing medical therapy to restore bone mass, or have additional risk factors. Ordered By: VIVIAN VALLEJO Interpreted By: Sina Juarez, 07/10/2023 9:57 AM Narrative 07/10/2023 9:58 AM CDT EXAMINATION: BONE DENSITY/DEXA INDICATIONS: Asymptomatic menopausal state COMPARISON: None TECHNIQUE: DEXA bone mineral density evaluation was performed in the AP projection over the lumbar spine and both hips utilizing standard imaging techniques. FINDINGS: The BMD measured at the AP spine L1-L4 is 0.799 g/cm? with a T-score of -2.3. The BMD measured at the left femoral neck is 0.568 g/cm? with a T-score of -2.5. The BMD measured at the left hip is 0.713 g/cm? with a T-score of -1.9. The BMD measured at the right femoral neck is 0.597 g/cm? with a T-score of - 2.3. The BMD measured at the right hip is 0.744 g/cm? with a T-score of -1.6. FRAX 10-year fracture risk: Major Osteoporotic Fracture: 15% Hip Fracture: 3.8% Procedure Note Sina Juarez MD - 07/10/2023 EXAMINATION: BONE DENSITY/DEXA INDICATIONS: Asymptomatic menopausal state COMPARISON: None TECHNIQUE: DEXA bone mineral density evaluation was performed in the APprojection over the lumbar spine and both hips utilizing standard imagingtechniques. FINDINGS: The BMD measured at the AP spine L1-L4 is 0.799 g/cm? with a T-score of-2.3. The BMD measured at the left femoral neck is 0.568 g/cm? with a T-score of-2.5. The BMD measured at the left hip is 0.713 g/cm? with a T-score of -1.9. The BMD measured at the right femoral neck is 0.597 g/cm? with a T-scoreof -2.3. The BMD measured at the right hip is 0.744 g/cm? with a T-score of -1.6. FRAX 10-year fracture risk: Major Osteoporotic Fracture: 15% Hip Fracture: 3.8% IMPRESSION: WHO Classification: Osteoporosis. RECOMMENDATIONS: All patients should ensure an adequate intake of dietary calcium andvitamin D. The NOF recommend adults under the age of 50 need 1000 mg ofcalcium and 400-800 IU of vitamin D daily. Effective therapy for theprevention and treatment of osteoporosis include bisphosphonates. FOLLOW-UP: People with diagnosed cases of osteoporosis or at high risk for fractureshould have regular bone mineral density test. For patients eligible forMedicare, routine testing is allowed once every 2 years. Testing frequencycan be increased to one year for patients who have rapidly progressingdisease, those who are receiving or discontinuing medical therapy torestore bone mass, or have additional risk factors. Ordered By: VIVIAN VALLEJO Interpreted By: Sina Juarez, 07/10/2023 9:57 AM Vivian Vallejo MD DEXA Final R esult from Last 3 Months or Most Recently Relevant to Health Maintenance Insurance [facility] MEDICARE Care Teams Branch Lead Relationship Specialty Start Date End Date Vivian Vallejo MD [address] [facility] [address] [place] [address] PCP - General FAMILY PRACTICE 02/05/18
--- OUTSIDE RECORDS SUMMARY | 2025-08-04 17:02 | XMS_ITS | Encounter Summary ---
Author Organization [facility] Address 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
--- OUTSIDE RECORDS SUMMARY | 2025-08-04 17:02 | XMS_ITS | Encounter Summary ---
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 Historical Provider [facility] AMANDA CAMPUZANO Final Result documented in this encounter Visit Diagnoses Not on filedocumented in this encounter Care Teams Device Test Engineer Relationship Specialty Start Date End Date Sayda Vallejo MD [address] [place] [address] PCP - General Family Medicine 12/22/18 documented as of this encounter
--- OUTSIDE RECORDS SUMMARY | 2025-08-04 17:02 | XMS_ITS | Encounter Summary ---
Author Organization [facility] Address 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
--- OUTSIDE RECORDS SUMMARY | 2025-08-04 17:02 | XMS_ITS | Clinical Summary ---
Author Organization [facility] Address [address] [place] [address] Care Team Providers Care Eligibility Counselor Name Role Phone Sayda Vallejo MD Primary Care Provider [phone] Buzz Huber MD Unavailable [phone] Source Comments [facility],non-owned Affiliates and Associated Physician Practices is amultiple site organization consisting of ambulatory clinics and hospital sitesin [place], [place], [place] and [place]. This disclosure is being madepursuant to the Care Everywhere program and may not contain all information available regarding this patient. Last updated 18.[facility] Allergies No known active allergies Medications * Be aware that medications may not be up to date on this document. Alwaysverify current medications with the patient. No known medications Social History Tobacco Use Types Packs/Day Years Used Date Smoking Tobacco: Never Smokeless Tobacco: Never Comments Unknown Sex and Gender Information Value Date Recorded Sex Assigned at Not on file Legal Sex Female 9:10 AM CDT Gender Identity Not on file Sexual Orientation Not on file Last Filed Vital Signs Vital Sign Reading Time Taken Comments Blood Pressure - - Pulse - - Temperature - - Respiratory Rate - - Oxygen Saturation - - Inhaled Oxygen Concentration - - Weight 63.5 kg (140 lb) 06/20/2017 7:56 AM CDT Height 165.1 cm (5' 5) 06/20/2017 7:56 AM CDT Body Mass Index 23.3 06/20/2017 7:56 AM CDT Plan of Treatment Health Maintenance Due Date Last Done Comments BONE DENSITY TESTING 1960 COLOGUARD (AGES 45-75) - COL ON CA SCREENING 1958 COLON MONITORING 1958 COLONOSCOPY - COLON CA SCREENING 1958 CT COLONOGRAPHY - COLON CA SCREENING 1960 Colorectal Cancer Screening 1960 FIT - COLON CA SCREENING 1958 FLEX SIG - COLON CA SCREENING 1958 LIPID TESTING 1960 MAMMOGRAM 1960 HEPATITIS C SCREENING 04/25/1976 DTAP/TDAP/TD VACCINES (1 - Tdap) 1977 PNEUMOCOCCAL VACCINE 50+ (1 of 1 - PCV) 2008 ZOSTER VACCINE (1 of 2) 2008 DEPRESSION SCREENING 09/29/2024 COVID-19 VACCINE (1 - 2023-2 5 season) 2025 INFLUENZA VACCINE (#1) 2025 Respiratory Syncytial Virus (RSV) Vaccine Pt: or over 60 yrs (1 - 1-dose 75+ series) 2033 HEPATITIS B VACCINE Aged Out No longe r eligible based on patient's age to complete this topic HIB VACCINE Aged Out No longer eligi ble based on patient's age to complete this topic HPV VACCINE Aged Out No longer eligi ble based on patient's age to complete this topic MENINGOCOCCAL (Group B) VACC INE SHARED DECISION-MAKING Aged Out No longer eligibl e based on patient's age to complete this topic MENINGOCOCCAL GROUPS A/C/Y/W VACCINE Aged Out No longer eligible b ased on patient's age to complete this topic Insurance [employer] Care Teams Eligibility Counselor Relationship Specialty Start Date End Date Sayda Vallejo MD PCP - General Family Medicine 06/20/17 [place] [id number] [address] Orthopedic Surgery 06/20/17
--- OUTSIDE RECORDS SUMMARY | 2025-08-04 17:02 | XMS_ITS | Clinical Summary ---
Author Organization [facility] Address [address] 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
== END 2025-08-04 08:48 | disposition home or self-care (01) ==
PROVIDERS: Emergency Provider Nurse Practitioner; PCP Family Medicine
DX: J06.9 Acute upper respiratory infection, unspecified (principal); B97.89 Other viral agents as the cause of diseases classified elsewhere; J02.9 Acute pharyngitis, unspecified; F17.210 Nicotine dependence, cigarettes, uncomplicated
CPT/HCPCS: 99213; G0463